=== PATIENT | male | born 1935 | race Caucasian/White ===

== ENCOUNTER 2016-07-01 15:13 | Observation (INO) | payer MEDICARE, OTHER ==
[2016-07-01 15:53] LABS: ABSOLUTE BASOPHILS # (AUTO) 0.1 10^3/uL (0.0-0.2); ABSOLUTE LYMPHOCYTES (AUTO) 1.1 10^3/uL (0.5-4.7); ABSOLUTE MONOCYTES (AUTO) 0.9 10^3/uL (0.1-1.4); ABSOLUTE NEUT (AUTO) 6.4 10^3/uL (1.7-8.2); BASOPHILS % (AUTO) 1.1 % (0-2); EOSINOPHILS % (AUTO) 0.5 % (0-6); HEMATOCRIT 35.9 % (37.9-51.0); HEMOGLOBIN 11.4 g/dL (13.5-17.0); HGB HCT DIFFERENCE -1.7; LYMPHOCYTES % (AUTO) 13.1 % (13-45); MEAN CORPUSCULAR HEMOGLOBIN 23.1 pg (27.0-33.4); MEAN CORPUSCULAR HGB CONC 31.8 g/dL (32.0-36.0); MEAN CORPUSCULAR VOLUME 73 fl (80-97); RED BLOOD COUNT 4.93 10^6/uL (4.35-5.55); SEGMENTED NEUTROPHILS % (AUTO) 75.3 % (42-78); WHITE BLOOD COUNT 8.5 10^3/uL (4.0-10.5)
[2016-07-01 15:55] LABS: PARTIAL THROMBOPLASTIN TIME 28.9 SEC (23.5-35.8); PROTHROMBIN TIME 13.2 SEC (11.4-15.4)
--- NOTE | 2016-07-01 15:57 | ER Document Report ---
ED General - General Stated Complaint: POSSIBLE STROKE Information source: Patient Notes: 80-year-old male who presents with his daughter with past medical history as recorded including a TIA, COPD, on baseline 3 L of nasal cannula at home. 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 According to the daughter the patient around 1 PM started to complain of feeling "lightheaded " with some bilateral lower extremity weakness. She states she couldn't " barely stand". She also states his oxygen level had returned up to 5 L and he was showing some hypoxia on the monitor. Patient was taken from triage immediately to the CAT scan machine and returned to room 2 where I met him. Patient currently denies any symptoms. Specifically he denies any headache, neck pain, chest pain, palpitations, abdominal pain, weakness or numbness. NIH score recorded immediately was 0. TRAVEL OUTSIDE OF THE [place] IN LAST 30 DAYS: No - HPI Onset: Other - See above Onset/Duration: Sudden Quality of pain: No pain Severity: Moderate Pain Level: Denies Associated symptoms: Other - See above Exacerbated by: Denies Relieved by: Denies Similar symptoms previously: Yes Recently seen / treated by doctor: No - Related Data Allergies/Adverse Reactions: No Known Allergies Allergy (Verified 07/05/14 15:03) Past Medical History - General Information source: Patient, Relative - Social History Smoking Status: Unknown if Ever Smoked Cigarette use (# per day): No Chew tobacco use (# tins/day): No Smoking Education Provided: No Frequency of alcohol use: None Family History: Reviewed & Not Pertinent - Past Medical History Cardiac Medical History: Reports: Hx Heart Attack - 2004, Hx Hypertension Denies: Hx Coronary Artery Disease Pulmonary Medical History: Reports: Hx Bronchitis, Hx COPD - inh, Hx Pneumonia - hx 2009 Denies: Hx Asthma Neurological Medical History: Denies: Hx Cerebrovascular Accident, Hx Seizures Musculoskeltal Medical History: 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 Psychiatric Medical History: Denies: Hx Depression Past Surgical History: Reports: Hx Pacemaker - Immunizations Hx Diphtheria, Pertussis, Tetanus Vaccination: Yes Hx Pneumococcal Vaccination: 01/11/09 Review of Systems - Review of Systems Constitutional: denies: Fever EENT: denies: Eye discharge, Nose discharge Respiratory: denies: Short of breath Gastrointestinal: denies: Vomiting Genitourinary: denies: Dysuria Musculoskeletal: denies: Leg swelling Skin: Other - no hives. denies: Rash Neurological/Psychological: Other - no slurred speech -: Yes All other systems reviewed and negative Physical Exam - Vital signs Vitals: Temp Pulse Resp BP 98.1 F 74 16 95/47 L 07/01/16 15:15 07/01/16 15:15 07/01/16 15:15 07/01/16 15:15 Notes: Reviewed vital signs and nursing note as charted by RN. CONSTITUTIONAL: Alert and oriented and responds appropriately to questions. Well -appearing; well-nourished HEAD: Normocephalic; atraumatic EYES: PERRL; full extraocular range of motion ENT: Normal nose; no rhinorrhea; moist mucous membranes; pharynx without lesions noted NECK: Supple without meningismus; no carotid bruits; non-tender; no cervical lymphadenopathy, no masses CARD: Regular rate and rhythm; no murmurs, no clicks, no rubs, no gallops; symmetric distal pulses RESP: Normal chest excursion without splinting or tachypnea; breath sounds clear and equal bilaterally; no wheezes, rales or rhonchi on examination. ABD/GI: Normal bowel sounds; non-distended; soft, non-tender, no rebound, no guarding; no palpable organomegaly or masses BACK: The back appears normal and is non-tender to palpation, there is no CVA tenderness EXT: Normal ROM in all joints; non-tender to palpation; no cyanosis, no effusions, no edema SKIN: Normal color for age and race; warm; dry; good turgor; capillary refill < 2 seconds; no acute lesions noted NEURO: CN II through XII are intact. 5 out of 5 bilateral upper and lower extremity strength. Sensation intact to light touch. Normal finger-nose bilaterally. PSYCH: The patient's mood and manner are appropriate. Grooming and personal hygiene are appropriate. Course - Re-evaluation Re-evalutation: 07/01/16 15:55 Given the history and physical examination, NIH score, CT scan of the head showing no acute abnormality, I DO NOT BELIEVE THE PATIENT IS A CANDIDATE FOR TPA. EKG shows a heart of 101, patient appears to have a wide complex atrial tachycardia consistent with possibly a left bundle branch block. Old EKG from 07/13/2014 shows a normal sinus rhythm. No bundle branch block is present at that time. 07/01/16 15:58 I reviewed the patient's chart it appears the patient does have a history of atrial fibrillation and is currently on Eliquis. Patient has denied any and all chest pain. Cardiac labs are pending. - Vital Signs Vital signs: Temp Pulse Resp BP Pulse Ox 98.1 F 100 20 119/56 L 97 07/01/16 15:15 07/01/16 15:52 07/01/16 16:01 07/01/16 16:01 07/01/16 16:01 - Laboratory Result Diagrams: 07/01/16 15:36 07/01/16 15:36 Laboratory results interpreted by me: 07/01/16 07/01/16 15:36 15:36 Hgb 11.4 L Hct 35.9 L MCV 73 L MCH 23.1 L MCHC 31.8 L RDW 18.0 H BUN 23 H Creatinine 1.66 H Est GFR ( Amer) 49 L Est GFR (Non-Af Amer) 40 L Glucose 139 H Critical Care Note - Critical Care Note Total time excluding time spent on procedures (mins): 40 Discharge - Discharge Clinical Impression: Weakness, Irregular heart rhythm Altered mental status Qualifiers: Altered mental status type: unspecified Qualified Code(s): R41.82 - Altered mental status, unspecified Acute renal failure Qualifiers: Acute renal failure type: unspecified Qualified Code(s): N17.9 - Acute kidney failure, unspecified Condition: Fair Disposition: ADMITTED INPATIENT Admitting Provider: Hospitalist Unit Admitted: [facility]
[2016-07-01 16:09] LABS: ALANINE AMINOTRANSFERASE 35 U/L (21-72); ALKALINE PHOSPHATASE 61 U/L (38-126); ANION GAP 14 (5-19); ASPARTATE AMINO TRANSFERASE 32 U/L (17-59); BILIRUBIN,DIRECT 0.3 mg/dL (0.0-0.4); BILIRUBIN,TOTAL 0.9 mg/dL (0.2-1.3); BLOOD UREA NITROGEN 23 mg/dL (7-20); CALCIUM 9.5 mg/dL (8.4-10.2); CARBON DIOXIDE 29 mmol/L (22-30); CHLORIDE 99 mmol/L (98-107); CREATINE KINASE 168 U/L (55-170); CREATININE RESULT 1.66 mg/dL (0.52-1.25); GLUCOSE 139 mg/dL (75-110); POTASSIUM 4.1 mmol/L (3.6-5.0); SODIUM 142.2 mmol/L (137-145); TOTAL PROTEIN 6.5 g/dL (6.3-8.2)
[2016-07-01 16:21] LABS: CREATINE KINASE MB 3.16 ng/mL (<4.55)
[2016-07-01 16:23] LABS: TROPONIN I 0.05 ng/mL
[2016-07-01] MEDS ORDERED: NORMAL SALINE 1000 ML 500 ML IV ONE (17:05)
[2016-07-01] MEDS ORDERED: ACETAMINOPHEN 325 MG TABLET PO PRN (18:00)
[2016-07-01] MEDS ORDERED: GLUCAGON,HUMAN RECOMB 1 MG INJ IM PRN (18:00)
[2016-07-01] MEDS ORDERED: DEXTROSE 50%-WATER 25 GM/50 ML DISP.SYRIN IV PRN ×2 (18:00)
[2016-07-01] MEDS ORDERED: DEXTROSE 40% GEL 15 GM TUBE PO PRN ×2 (18:00)
[2016-07-01] MEDS ORDERED: ONDANSETRON HCL INJ/PF 4 MG/2 ML SDV IV PRN (18:07)
[2016-07-01] MEDS ORDERED: MAGNESIUM HYDROXIDE SUSP 30 ML UDCUP PO PRN (18:07)
[2016-07-01] MEDS: NORMAL SALINE 1000 ML 1,000 ML IV PRN (18:29)
--- NOTE | 2016-07-01 18:29 | EKG REPORT ---
SEVERITY:- ABNORMAL ECG - ATRIAL FIBRILLATION IVCD, CONSIDER ATYPICAL LBBB : Confirmed by: Noe Quintanilla MD 01-Jul-2016 18:28:58
--- NOTE | 2016-07-01 18:31 | PDOC H&P ---
History of Present Illness Admission Date/PCP: 07/01/16 17:34 TEZ YEH MD Patient complains of: Weakness History of Present Illness: MARIO YEH is a 80 year old male presents to the emergency department from home at the insistence of his daughter who states he became suddenly weak today and unable to bear his own weight. Because of his history of TIA and atrial fibrillation and she thought that further evaluation. He really doesn't know why he is here because he thinks she overreacted and is only willing to stay in the hospital to "keep the peace". He states the reason is weak is because all she will let him do is sit in the chair all day, apparently his daughter is his care provider at home. He denies headache, vision changes, tinnitus, chest pain, palpitations, fever, chills, cough with phlegm, nausea, vomiting, diarrhea, unilateral weakness, numbness or tingling, dysarthria or difficulty swallowing, difficulty finding his words. Evaluation in the emergency department shows a new left bundle branch block when compared to EKG from 2015 and the remainder of his workup is unremarkable. We were asked to admit for further evaluation of presumed transient ischemic attack. Past Medical History Cardiac Medical History: Reports: Atrial Fibrillation, Myocardial Infarction - 2005, Hypertension Denies: Coronary Artery Disease Pulmonary Medical History: Reports: Bronchitis, Chronic Obstructive Pulmonary Disease (COPD) - inh, Pneumonia - hx 2008 Denies: Asthma Neurological Medical History: Denies: Seizures Endocrine Medical History: Reports: Diabetes Mellitus Type 2 Musculoskeltal Medical History: Reports: Arthritis - mild Psychiatric Medical History: Denies: Depression Hematology: Denies: Anemia Past Surgical History Past Surgical History: Reports: Coronary Artery Bypass Graft, Pacemaker Social History Smoking Status: Unknown if Ever Smoked Frequency of Alcohol Use: Rare Hx Recreational Drug Use: No Hx Prescription Drug Abuse: No - Advance Directive Resuscitation Status: Full Code Family History Family History: Reviewed & Not Pertinent Parental Family History Reviewed: Yes Children Family History Reviewed: Yes Sibling(s) Family History Reviewed.: Yes Medication/Allergy Home Medications: Albuterol Sulfate [Albuterol Sulfate Hfa] 1 - 2 puff IH Q4 PRN 07/05/14 Apixaban [Eliquis 5 mg Tablet] 5 mg PO BID 07/05/14 Bromfenac Sodium [Prolensa] 3 ml OP DAILY 07/05/14 Chlorthalidone [Chlorthalidone 25 mg Tablet] 0.5 tab PO DAILY 07/05/14 Insulin Lispro [Humalog Insulin (Lispro) 100 unit/mL] 0 unit SUBCUT .SLD SCALE PRN 07/05/14 Lisinopril 10 mg PO BID 07/05/14 Metoprolol Tartrate [Lopressor] 50 mg PO BID 07/05/14 Multivitamin [Tab-A-Essie (Multiple Vitamin) Tablet] 1 tab PO DAILY 07/05/14 Sanborn-3 Fatty Acids [Fish Oil] 500 mg PO DAILY 07/05/14 Rosuvastatin Calcium [Crestor 20 mg Tablet] 40 mg PO QHS 07/05/14 Insulin Detemir [Levemir Flextouch] 40 unit SQ QAM #0 ml 07/08/14 Pentoxifylline [Pentoxil] 400 mg PO TID 07/11/14 Azithromycin [Zithromax] 250 mg PO DAILY #7 tablet 07/17/14 Allergies/Adverse Reactions: No Known Allergies Allergy (Verified 07/05/14 15:03) Review of Systems Constitutional: ABSENT: chills, fever(s), headache(s), weight gain, weight loss Eyes: ABSENT: visual disturbances Ears: ABSENT: hearing changes Cardiovascular: ABSENT: chest pain, dyspnea on exertion, edema, orthropnea, palpitations Respiratory: ABSENT: cough, hemoptysis Gastrointestinal: ABSENT: abdominal pain, constipation, diarrhea, hematemesis, hematochezia, nausea, vomiting Genitourinary: ABSENT: dysuria, hematuria Musculoskeletal: ABSENT: joint swelling Integumentary: ABSENT: rash, wounds Neurological: PRESENT: weakness. ABSENT: abnormal gait, abnormal speech, confusion, dizziness, focal weakness, numbness, paresthesias, syncope, tingling Psychiatric: ABSENT: anxiety, depression Endocrine: ABSENT: cold intolerance, heat intolerance, polydipsia, polyuria Hematologic/Lymphatic: ABSENT: easy bleeding, easy bruising Physical Exam Vital Signs: Temp Pulse Resp BP Pulse Ox 98.1 F 79 16 152/70 H 97 07/01/16 15:15 07/01/16 18:00 07/01/16 18:00 07/01/16 18:00 07/01/16 18:00 Intake & Output 06/30/16 07/01/16 07/02/16 06:59 06:59 06:59 Weight 79.379 kg PHYSICAL EXAM GENERAL: NAD; well developed, well nourished; no obese; alert and oriented to person, place, time, situation HEENT: normocephalic, atraumatic; EOMI, PERRLA, no conjunctival injection, no scleral icterus; oral mucosa moist; neck supple, no LAD, normal ROM RESPIRATORY: no accessory muscle use, no increased WOB, good air entry bilaterally; no wheezes, rales, rhonchi; no inspiratory crackles CARDIO: no JVD; irregularly irregular; no systolic murmur; no tachycardia VASCULAR: Right high-pitched carotid bruit; no abdominal bruit; no pallor; 2+ radial, DP pulse; normal capillary refill GI: soft; nondistended; normal bowel sounds; no hepato spleno megaly; no rebound, rigidity, guarding; nontender NEURO: normal patella reflexes; normal sensation; normal motor function; no dysarthria; no nystagmus; tongue protrudes midline; normal finger to nose; able to cross midline with finger to ear MSK: 5/5 strength; normal ROM hips; ambulatory without assistance; no tenderness EXTREMITIES: no calf tender; no palpable cords in calf; no clubbing, cyanosis , pedal edema PSYCH: normal affect, normal mood SKIN: warm; moist; no petechiae; no telengectasias; no jaundice; no rash but very pale Results Laboratory Results: Labs reviewed, CBC shows H&H of 11 and 36, platelets of 213 and WBCs of 8.5; chemistries show BUN and creatinine of 23 and 1.7 with a glucose of 139 and are otherwise unremarkable; first set of cardiac enzymes unremarkable. EKG Comments: Atrial fibrillation with a rate of 101, corrected QT interval of 509 but he has an incomplete left bundle branch block Impressions: Chest X-Ray 07/01/16 15:13 IMPRESSION: Borderline cardiomegaly with central pulmonary vascular congestion. There is hazy densities noted in the right mid lung and lower lung zones could represent areas of edema, infiltrate, or atelectasis. There is some retrocardiac opacity could represent atelectasis, edema, infiltrate, or aspiration. Correlate clinically. Head CT 07/01/16 15:13 IMPRESSION: CHRONIC CHANGES OF ATROPHY AND MICROVASCULAR ISCHEMIA. No acute intracranial abnormality identified. Status: Image reviewed by tn - Chest x-ray appears to show a right sided midlung rounded nodular density when compared to prior CT scan from 2 years ago there is a small 1.2 cm scar noted in the same area, this appears to be much larger by chest x-ray than previous Assessment & Plan - Diagnosis (1) TIA (transient ischemic attack) Qualifiers: Transient cerebral ischemia type: unspecified Qualified Code(s): G45.9 - Transient cerebral ischemic attack, unspecified Is this a current diagnosis for this admission?: YesPlan: Atypical presentation with bilateral lower extremity weakness and postural dizziness. Admit the patient to telemetry for overnight monitoring. He has a known carotid bruit on the right but states he's undergone carotid endarterectomy in the last year and was just seen by Dr. Sin his vascular surgeon in [facility] 3 weeks ago and his carotid arteries were cleaned by ultrasound at that time. He has a pacemaker in place and cannot undergo MRI. His pacemaker was just interrogated by Dr. Yeh his primary image processing engineer in [facility] within the last 30 days and was told he had no irregularities. The only abnormality identified thus far is an incomplete left bundle branch block that new by EKG for us since 2015 but true timing is unclear; will need old EKGs from his image processing engineer. I understand Dr. Porter as been consulting by the ER physician and yet to see the patient. Await cardiology's input. (2) Chronic atrial fibrillation Is this a current diagnosis for this admission?: YesPlan: He is on anticoagulation and reasonably rate controlled at present. Continue home regimen. (3) Acute renal failure Qualifiers: Acute renal failure type: unspecified Qualified Code(s): N17.9 - Acute kidney failure, unspecified Is this a current diagnosis for this admission?: YesPlan: Once again we have no recent lab work on him, in 2015 his serum creatinine was normal but it's unclear whether that could've decompensated over the course of the last 2 years. Given his presentation will presume its prerenal and gently fluid resuscitate through the night. (4) Weakness Is this a current diagnosis for this admission?: YesPlan: Likely multifactorial and possibly related to the above. Check orthostatic vitals now and in the morning. Have physical therapy evaluate to establish functional status. (5) COPD, severe Is this a current diagnosis for this admission?: YesPlan: Wears continuous O2 at home, 2 L during the day and 3 L at night. He denies obstructive sleep apnea or use of CPAP at night. I do not appreciate bronchospasm on today's exam. (6) Diabetes mellitus type II, controlled Qualifiers: Diabetes mellitus complication status: with circulatory complication Diabetes mellitus complication detail: with other circulatory complications Diabetes mellitus custodial insulin use: with mobile service rv technician use Qualified Code(s): E11.59 - Type 2 diabetes mellitus with other circulatory complications ; Z79.4 - longterm (current) use of insulin Is this a current diagnosis for this admission?: YesPlan: We need to verify his home regimen and continue basal bolus. Check hemoglobin A1c in the morning. (7) Hyperlipidemia Qualifiers: Hyperlipidemia type: unspecified Qualified Code(s): E78.5 - Hyperlipidemia, unspecified Is this a current diagnosis for this admission?: YesPlan: Check lipid panel in the morning. Continue his Crestor. (8) Hypertension Qualifiers: Hypertension type: renovascular hypertension Qualified Code(s): I15.0 - Renovascular hypertension Is this a current diagnosis for this admission?: YesPlan: Monitor his blood pressure through the night and continue his home regimen titrating to effect. (9) Pulmonary nodule, right Is this a current diagnosis for this admission?: YesPlan: Allowing for differences in technique it is possible the nodule is larger than seen previously, the patient receives most of his care in [place] including recent imaging. Defer to his primary care provider for repeat CT scan of the chest if that's not been performed in the last 6 months given the size seen on chest x-ray approximately 2 cm (10) Peripheral arterial disease Is this a current diagnosis for this admission?: YesPlan: History of carotid endarterectomy in the last year, followed by vascular surgery in [facility]. - Time Time Spent: 50 to 70 Minutes Medications reviewed and adjusted accordingly: Yes Anticipated discharge: Home Within: within 24 hours - Plan Summary Plan Summary: Check neurologic score through the night and assuming no new events can likely be discharged back home tomorrow. We'll attempt to get old records from his vascular surgeon and neurologist before reordering test he states have been completed within the last 30-60 days.
[2016-07-01 18:32] LABS: PHOSPHORUS 3.3 mg/dL (2.5-4.5)
--- NOTE | 2016-07-01 20:12 | PDOC CONSULTATION ---
Consultation Consult Date: 07/01/16 Attending physician:: OMER HOFFMAN Consult reason:: Abnormal EKG, wide-complex tachycardia History of Present Illness Admission Date/PCP: 07/01/16 17:34 TEZ CARLSON MD Patient complains of: generalized weakness History of Present Illness: MARIO CARLSON is a 80 year old male presents to the emergency department from home at the insistence of his daughter who states he became suddenly weak today and unable to bear his own weight. Because of his history of TIA and atrial fibrillation and she thought that further evaluation is needed. He really doesn't know why he is here because he thinks she overreacted and is only willing to stay in the hospital to "keep the peace". He states the reason is weak is because all she will let him do is sit in the chair all day, apparently his daughter is his care provider at home. He denies headache, vision changes, tinnitus, chest pain, palpitations, fever, chills, cough with phlegm, nausea, vomiting, diarrhea, unilateral weakness, numbness or tingling, dysarthria or difficulty swallowing, difficulty finding his words. Evaluation in the emergency department shows a new left bundle branch block when compared to EKG from 2015 and the remainder of his workup is unremarkable. We were asked to admit for further evaluation of presumed transient ischemic attack. This history was reviewed, confirmed and supplemented. On repeated questioning patient denied any chest pain. Patient claims that his generalized weakness has improved. Past Medical History Cardiac Medical History: Reports: Atrial Fibrillation, Myocardial Infarction - 2005, Hypertension Denies: Coronary Artery Disease Pulmonary Medical History: Reports: Bronchitis, Chronic Obstructive Pulmonary Disease (COPD) - inh, Pneumonia - hx 2008 Denies: Asthma Neurological Medical History: Denies: Seizures Endocrine Medical History: Reports: Diabetes Mellitus Type 2 Musculoskeltal Medical History: Reports: Arthritis - mild Psychiatric Medical History: Denies: Depression Hematology: Denies: Anemia Past Surgical History Past Surgical History: Reports: Coronary Artery Bypass Graft, Pacemaker Social History Information Source: Patient Smoking Status: Unknown if Ever Smoked Frequency of Alcohol Use: Rare Hx Recreational Drug Use: No Hx Prescription Drug Abuse: No - Advance Directive Resuscitation Status: Full Code Surrogate healthcare decision maker:: Patient's daughter Family History Family History: Reviewed & Not Pertinent Parental Family History Reviewed: Yes Children Family History Reviewed: Yes Sibling(s) Family History Reviewed.: Yes - Negative for premature coronary artery disease or sudden cardiac in the family amongst first degree relatives. Medication/Allergy Home Medications: Albuterol Sulfate [Proair HFA Inhalation Aerosol 8.5 gm MDI] 1 puff IH Q4HP PRN 07/01/16 Aspirin [Adult Low Dose Aspirin EC] 81 mg PO BID 07/01/16 Budesonide/Formoterol Fumarate [Symbicort HFA 160-4.5 mcg Inhaler 6 gm] 2 puff IH BID 07/01/16 Insulin Detemir [Levemir Flextouch] 0 units SQ .PERSLIDINGSCALE 07/01/16 Insulin Lispro [Humalog] 0 units SQ .PERSLIDINGSCALE 07/01/16 Metoprolol Tartrate [Lopressor] 50 mg PO BID 07/01/16 Multivitamin [Multivitamins] 1 tab PO DAILY 07/01/16 Rosuvastatin Calcium [Crestor] 40 mg PO QHS 07/01/16 Tiotropium [place] [Spiriva Respimat] 2 puff IH DAILY 07/01/16 Allergies/Adverse Reactions: No Known Allergies Allergy (Verified 07/05/14 15:03) Review of Systems Review of Systems: Please see history of present illness and past medical history as wall. Constitutional: No fever or chills reported. Patient has noted some general fatigue and tiredness. Head : No recent chronic headaches, recent head injury. Intermittent dizziness noted. Eyes: No recent eye pain, diplopia, redness, discharge, acute visual changes. Ears: No recent chronic ear pain, acute hearing loss, ear discharge. Oral cavity: No recent ulcerations, bleeding, oral cavity discomfort. Neck: No recent acute neck pain reported. Hematologic: No recent easy bruising or bleeding or hematologic malignancy reported. Lymphatic: No recent lymphatic malignancy, chronic lymphadenopathy reported yet Cardiovascular system review: See history of present illness. Respiratory system review: No recent chronic cough, hemoptysis, blood clots in the lungs reported. Mild Shortness of breath on exertion Gastrointestinal system review: Negative for any recent acute or chronic abdominal pain, hematemesis, melena, recent change in bowel habits. Genitourinary system review: No recent acute or chronic hematuria, flank pain, UTI etc. reported. Skin system review: Negative for any recent abnormal bruising, no rash, no pruritus reported. Neurologic: No prior history of strokes, mini strokes, seizure disorder. Psychologic: No history of major psychosis or major depression reported. Musculoskeletal: Minor aches and pains reported. No acute joint swelling reported. Endocrine: No recent polyuria, polydipsia, recent heat or cold intolerance. Physical Exam Vital Signs: Temp Pulse Resp BP Pulse Ox 98.1 F 79 17 137/52 H 88 L 07/01/16 15:15 07/01/16 18:00 07/01/16 19:01 07/01/16 19:01 07/01/16 19:01 Intake & Output 06/30/16 07/01/16 07/02/16 06:59 06:59 06:59 Weight 79.379 kg Exam: GENERAL: well-nourished and in no acute distress. Alert and oriented x3 HEAD: Atraumatic, normocephalic. EYES: Pupils equal round and reactive to light, extraocular movements intact, sclera anicteric, conjunctiva are normal. ENT: TMs normal, nares patent, oropharynx clear without exudates. Moist mucous membranes. No oral ulcerations or bleeding gums noted NECK: supple without lymphadenopathy. Trachea is central. No cervical or axillary lymphadenopathy noted. Carotids are 2+, JVD WNL LUNGS: Respiration seems nonlabored, no significant accessory muscle action noted. Breath sounds clear to auscultation bilaterally and equal noted. No wheezes rales or rhonchi noted. No significant dullness noted on percussion. CHEST: Palpation of the chest wall shows no significant chest wall tenderness. No other significant abnormalities noted. Pacemaker defibrillator noted left side of chest. 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 ABDOMEN: Soft, no significant tenderness appreciated, normoactive bowel sounds. No guarding, no rebound. No rigidity noted . No masses appreciated. EXTREMITIES: Pedal pulses are 1-2+, no calf tenderness noted. No clubbing or cyanosis.trace to 1+ pedal edema noted NEUROLOGICAL: Focused neurological exam showed no significant neurologic deficit. Normal speech, no focal weakness appreciated. PSYCH: Normal mood, normal affect. Judgment and insight within normal limits. SKIN: No significant ecchymosis, rash, ulcerations or signs of pruritus noted. MUSCULOSKELETAL EXAM: No significant joint swelling noted. Results EKG Comments: Atrial fibrillation with left bundle branch block pattern. New changes on EKG from approximately 2 years ago. Impressions: Chest X-Ray 07/01/16 15:13 IMPRESSION: Borderline cardiomegaly with central pulmonary vascular congestion. There is hazy densities noted in the right mid lung and lower lung zones could represent areas of edema, infiltrate, or atelectasis. There is some retrocardiac opacity could represent atelectasis, edema, infiltrate, or aspiration. Correlate clinically. Head CT 07/01/16 15:13 IMPRESSION: CHRONIC CHANGES OF ATROPHY AND MICROVASCULAR ISCHEMIA. No acute intracranial abnormality identified. Assessment & Plan - Diagnosis (1) Left bundle branch block (LBBB) Is this a current diagnosis for this admission?: YesPlan: This is new since previous EKG available for review from 2014. At this point agree with VT rule out protocol. Since patient did not have chest pain, no intervention is being planned. Have ordered her echocardiogram. (2) Chronic atrial fibrillation Is this a current diagnosis for this admission?: YesPlan: Patient gives history of chronic atrial fibrillation. Patient has been on chronic anticoagulation. At this times rate slightly on the high side but reasonably well controlled. Continue with chronic anticoagulation. (3) TIA (transient ischemic attack) Qualifiers: Transient cerebral ischemia type: unspecified Qualified Code(s): G45.9 - Transient cerebral ischemic attack, unspecified Is this a current diagnosis for this admission?: YesPlan: Currently resolved. Recommend statin therapy. May consider carotid duplex ultrasound study (4) Weakness Is this a current diagnosis for this admission?: YesPlan: Currently stable. May consider IV fluid therapy. (5) Presence of combination internal cardiac defibrillator (ICD) and pacemaker Is this a current diagnosis for this admission?: YesPlan: Patient denies any recent discharges. (6) Coronary artery disease Qualifiers: Coronary Disease-Associated Artery/Lesion type: unspecified vessel or lesion type Associated angina: angina presence unspecified Is this a current diagnosis for this admission?: YesPlan: Patient gives history of CAD and is status post CABG. Generalized weakness can be an ischemia equivalent symptom at this age group. Agree with cardiac enzymes. If abnormal will consider further evaluation with a stress test. - Notes Notes: CODE STATUS was discussed, patient remains full code. Surrogate decision-maker unchanged. Multiple medical problems were addressed. - Time Time Spent: 30 to 50 Minutes - More than 50% of the time spent coordinating care , discussing management plans with involved caregivers. Management plans discussed with involved personnels. Medical decision making was of moderate complexity. Surrogate decision-maker patient's daughter. Medications reviewed and adjusted accordingly: Yes
[2016-07-01] MEDS: FAMOTIDINE 20 MG TABLET PO SCH (21:27)
[2016-07-01] MEDS: INSULIN LISPRO 100 UNIT/ML 3 ML VIAL SUBCUT PRN (23:39)
[2016-07-02] MEDS: NORMAL SALINE 1000 ML 1,000 ML IV PRN (03:20)
[2016-07-02 03:46] LABS: HEMATOCRIT 33.8 % (37.9-51.0); HEMOGLOBIN 10.9 g/dL (13.5-17.0); HGB HCT DIFFERENCE -1.1; MEAN CORPUSCULAR HEMOGLOBIN 23.4 pg (27.0-33.4); MEAN CORPUSCULAR HGB CONC 32.2 g/dL (32.0-36.0); MEAN CORPUSCULAR VOLUME 73 fl (80-97); RED BLOOD COUNT 4.65 10^6/uL (4.35-5.55); RED CELL DISTRIBUTION WIDTH 18.2 % (11.5-14.0); WHITE BLOOD COUNT 5.9 10^3/uL (4.0-10.5)
[2016-07-02 04:03] LABS: ANION GAP 14 (5-19); BLOOD UREA NITROGEN 23 mg/dL (7-20); CALCIUM 9.3 mg/dL (8.4-10.2); CARBON DIOXIDE 26 mmol/L (22-30); CHLORIDE 103 mmol/L (98-107); CHOLESTEROL 126.23 mg/dL (0-200); CREATININE RESULT 1.05 mg/dL (0.52-1.25); Direct HDL 41 mg/dL (>40); GLUCOSE 160 mg/dL (75-110); POTASSIUM 3.9 mmol/L (3.6-5.0); SODIUM 142.8 mmol/L (137-145); TRIGLYCERIDES 69 mg/dL (<150)
[2016-07-02 04:14] LABS: DIRECT LDL 73 mg/dL (<100)
[2016-07-02 06:27] LABS: APPEARANCE,URINE CLEAR; BILIRUBIN,URINE NEGATIVE (NEGATIVE); GLUCOSE, URINE 50 mg/dL (NEGATIVE); KETONES,URINE NEGATIVE (NEGATIVE); LEUKOCYTE ESTERASE,URINE NEGATIVE (NEGATIVE); NITRITE,URINE NEGATIVE (NEGATIVE); PROTEIN,URINE NEGATIVE (NEGATIVE); URINE SPECIFIC GRAVITY 1.014; UROBILINOGEN,URINE NEGATIVE mg/dL (<2.0)
[2016-07-02] MEDS: INSULIN LISPRO 100 UNIT/ML 3 ML VIAL SUBCUT PRN ×2 (08:43→12:29)
[2016-07-02] MEDS: FAMOTIDINE 20 MG TABLET PO SCH (09:54)
--- NOTE | 2016-07-02 12:07 | PDOC PROGRESS REPORT ---
Subjective Progress Note for:: 07/02/16 Subjective:: Patient seems to be doing better with gradual improvement. Pt is denying any chest arm or neck discomfort. Patient denying any PND, orthopnea. Patient denied any sustained palpitations, dizziness, syncope, near syncope. Patient denying any fever chills. Patient denying any other significant discomfort. Patient is maintaining sinus rhythm. Patient seems to have converted to sinus rhythm from atrial fibrillation. He was noted to be in sinus rhythm on rounds this morning. Twelve-lead EKG obtained subsequently did confirm this. Patient however remains in left bundle branch block pattern. Review of systems: Rest review of systems negative. Medications: Medications have been reviewed. Physical Exam Vital Signs: Temp Pulse Resp BP Pulse Ox 98.3 F 97 20 180/67 H 96 07/02/16 08:00 07/02/16 08:00 07/02/16 08:00 07/02/16 08:00 07/02/16 08:00 Intake & Output 07/01/16 07/02/16 07/03/16 06:59 06:59 06:59 Intake Total 213 Output Total 300 Balance -87 Weight 77 kg Exam: GENERAL: well-nourished and in no acute distress. Alert and oriented x3 HEAD: Atraumatic, normocephalic. EYES: Pupils equal round and reactive to light, extraocular movements intact, sclera anicteric, conjunctiva are normal. ENT: TMs normal, nares patent, oropharynx clear without exudates. Moist mucous membranes. No oral ulcerations or bleeding gums noted NECK: supple without lymphadenopathy. Trachea is central. No cervical or axillary lymphadenopathy noted. Carotids are 2+, JVD WNL LUNGS: Respiration seems nonlabored, no significant accessory muscle action noted. Breath sounds clear to auscultation bilaterally and equal noted. No wheezes rales or rhonchi noted. No significant dullness noted on percussion. CHEST: Palpation of the chest wall shows no significant chest wall tenderness. No other significant abnormalities noted. 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 ABDOMEN: Soft, no significant tenderness appreciated, normoactive bowel sounds. No guarding, no rebound. No rigidity noted . No masses appreciated. EXTREMITIES: Pedal pulses are 1-2+, no calf tenderness noted. No clubbing or cyanosis.trace to 1+ pedal edema noted NEUROLOGICAL: Focused neurological exam showed no significant neurologic deficit. Normal speech, no focal weakness appreciated. PSYCH: Normal mood, normal affect. Judgment and insight within normal limits. SKIN: No significant ecchymosis, rash, ulcerations or signs of pruritus noted. MUSCULOSKELETAL EXAM: No significant joint swelling noted. Results Laboratory Results: 07/02/16 03:34 07/02/16 03:34 07/02/16 07/02/16 07/02/16 03:34 03:34 06:13 WBC 5.9 RBC 4.65 Hgb 10.9 L Hct 33.8 L MCV 73 L MCH 23.4 L MCHC 32.2 RDW 18.2 H Plt Count 168 Sodium 142.8 Potassium 3.9 Chloride 103 Carbon Dioxide 26 Anion Gap 14 BUN 23 H Creatinine 1.05 Est GFR ( Amer) > 60 Est GFR (Non-Af Amer) > 60 Glucose 160 H Calcium 9.3 Triglycerides 69 Cholesterol 126.23 LDL Cholesterol Direct 73 VLDL Cholesterol 14.0 HDL Cholesterol 41 Urine Color YELLOW Urine Appearance CLEAR Urine pH 5.0 Ur Specific [place] 1.014 Urine Protein NEGATIVE Urine Glucose (UA) 50 H Urine Ketones NEGATIVE Urine Blood NEGATIVE Urine Nitrite NEGATIVE Ur Leukocyte Esterase NEGATIVE Urine WBC (Auto) 1 Urine RBC (Auto) 0 07/01/16 07/02/16 21:40 03:34 Troponin I 0.045 0.062 Impressions: Chest X-Ray 07/01/16 15:13 IMPRESSION: Borderline cardiomegaly with central pulmonary vascular congestion. There is hazy densities noted in the right mid lung and lower lung zones could represent areas of edema, infiltrate, or atelectasis. There is some retrocardiac opacity could represent atelectasis, edema, infiltrate, or aspiration. Correlate clinically. Head CT 07/01/16 15:13 IMPRESSION: CHRONIC CHANGES OF ATROPHY AND MICROVASCULAR ISCHEMIA. No acute intracranial abnormality identified. Assessment & Plan - Diagnosis (1) Left bundle branch block (LBBB) Is this a current diagnosis for this admission?: Yes (2) TIA (transient ischemic attack) Qualifiers: Transient cerebral ischemia type: unspecified Qualified Code(s): G45.9 - Transient cerebral ischemic attack, unspecified Is this a current diagnosis for this admission?: Yes (3) Weakness Is this a current diagnosis for this admission?: Yes (4) Presence of combination internal cardiac defibrillator (ICD) and pacemaker Is this a current diagnosis for this admission?: Yes (5) Coronary artery disease Qualifiers: Coronary Disease-Associated Artery/Lesion type: unspecified vessel or lesion type Associated angina: angina presence unspecified Is this a current diagnosis for this admission?: Yes (6) Hypertension Qualifiers: Hypertension type: essential hypertension Qualified Code(s): I10 - Essential (primary) hypertension Is this a current diagnosis for this admission?: Yes (7) Atrial fibrillation Qualifiers: Atrial fibrillation type: paroxysmal Qualified Code(s): I48.0 - Paroxysmal atrial fibrillation Is this a current diagnosis for this admission?: Yes (8) Severe hypertension Is this a current diagnosis for this admission?: Yes - Notes Notes: Left bundle branch block pattern: New since prior EKG from 2014. Do not feel anything acute is going on. Patient did have a stress test about a month ago. Cardiac enzymes are negative. Feel that patient stable enough to follow with his primary artificial teeth inspector for further assessment as needed. Patient not experiencing any chest pain and cardiac enzymes are negative therefore doubt ischemia induced left bundle. 2-D echo results reviewed. Atrial fibrillation: Now felt to be paroxysmal. Patient may benefit from maintenance of sinus rhythm. In this regard will leave decision for primary care artificial teeth inspector to start him on either amiodarone or sotalol. Patient was felt not to be that much symptomatic when in atrial fibrillation. Transient ischemic attack: Resolved. Could have been related to atrial fibrillation. Presence of cardiac defibrillator pacemaker: This was interrogated recently as well and was noted to be working fine. CAD: Currently stable without any symptoms to indicate angina or angina equivalent symptom. Recommend follow-up with artificial teeth inspector for further optimization of therapy. Hypertension, severe: Blood pressure in the severe hypertension range Patient's blood pressure noted to be significantly elevated. Have added Norvasc 5 mg by mouth daily, however losartan or CLARISA inhibitor could have been better choice but there is some concern whether patient has renovascular hypertension. Antihypertensive therapy can be further optimized as an outpatient. - Time Time with patient: Greater than 35 minutes - CODE STATUS was discussed, patient remains full code. Surrogate decision-maker unchanged. Multiple medical problems were addressed.More than 50% of the time spent coordinating care, discussing management plans with involved caregivers. Management plans discussed with involved personnels. Medical decision making was of moderate complexity. Medications reviewed and adjusted accordingly: Yes
[2016-07-02] MEDS ORDERED: LOSARTAN POTASSIUM 25 MG TABLET PO SCH (12:15)
[2016-07-02] MEDS ORDERED: METOPROLOL TARTRATE 50 MG TABLET PO ONE (12:30)
[2016-07-02] MEDS ORDERED: MULTIVITAMIN TABLET PO ONE (13:00)
[2016-07-02] MEDS ORDERED: AMLODIPINE BESYLATE 5 MG TABLET PO ONE (13:30)
--- NOTE | 2016-07-02 13:42 | XCELERA REPORT ---
[address] [address] Transthoracic Echocardiogram Report Name: MARIO CARLSON Age: 80 yrs Gender: Male : 1935 Patient Status: Inpatient Patient Location: [id number] Study Date: 07/02/2016 07:55 AM Height: 70 in Weight: 175 lb BSA: 2.0 m2 Procedure: A complete two-dimensional transthoracic echocardiogram was performed (2D, M-mode, spectral and color flow Doppler). The study was technically adequate with some images being suboptimal in quality. Reason For Study: A. fib, dyspnea Ordering Physician: JP ALVAREZ Performed By: Poncho Welsh Interpretation Summary Left ventricular systolic function is low normal. LV diastolic function could not be adequately assessed. There is mild concentric left ventricular hypertrophy. The left ventricle is grossly normal size. Wall motion cannot be accurately commented on, but no definite regional wall motion abnormalities noted. The right ventricular systolic function is normal. The left atrium is moderately dilated. The right atrium is mildly dilated. There is no mitral valve stenosis. There is a mild amount of mitral regurgitation There is a trace amount of aortic regurgitation There is no aortic valve stenosis There is a trace to mild amount of tricuspid regurgitation There is moderate pulmonary hypertension by echo Right ventricular systolic pressure is estimated to be elevated at 50- 60mmHg. The pulmonic valve is not well visualized. The aortic root is not well visualized. The inferior vena cava appeared normal and decreased > 50% with respiration (RAP 5-10 mmHg) There is no pericardial effusion. MMode/2D Measurements \T\ Calculations RVDd: 1.8 cm LVIDd: 5.5 cm FS: 22.6 % Ao root diam: 3.3 cm IVSd: 1.3 cm LVIDs: 4.3 cm EDV(Teich): 149.2 ml LVPWd: 1.4 cm ESV(Teich): 82.0 ml Ao root area: 8.6 cm2 EF(Teich): 45.0 % LA dimension: 4.9 cm Doppler Measurements \T\ Calculations MV E max xochitl: MV P1/2t max xochitl: Ao V2 max: LV V1 max P.9 cm/sec 133.3 cm/sec 140.6 cm/sec 3.8 mmHg MV P1/2t: 41.6 msec Ao max PG: LV V1 max: 7.9 mmHg 96.9 cm/sec MVA(P1/2t): 5.3 cm2 MV dec slope: 937.5 cm/sec2 PA V2 max: TR max xochitl: RAP systole: 71.1 cm/sec 333.0 cm/sec 10.0 mmHg PA max P.0 mmHgTR max P.4 mmHg RVSP(TR): 54.4 mmHg Left Ventricle The left ventricle is grossly normal size. There is mild concentric left ventricular hypertrophy. Left ventricular systolic function is low normal. LV diastolic function could not be adequately assessed. Wall motion cannot be accurately commented on, but no definite regional wall motion abnormalities noted. Right Ventricle The right ventricle is grossly normal size. The right ventricle appears to be hypertrophied. The right ventricular systolic function is normal. Atria The right atrium is mildly dilated. The left atrium is moderately dilated. Interarterial septum not well visualized and not well dopplered. Cannot comment on ASD/PFO presence. Mitral Valve There is mild mitral leaflet calcification. There is no mitral valve stenosis. There is a mild amount of mitral regurgitation. Aortic Valve The aortic valve is mildly calcified. There is no aortic valve stenosis. There is a trace amount of aortic regurgitation. Tricuspid Valve The tricuspid valve is not well visualized secondary to technical limitations. There is no tricuspid stenosis. There is a trace to mild amount of tricuspid regurgitation. There is moderate pulmonary hypertension by echo. Right ventricular systolic pressure is estimated to be elevated at 50-60mmHg. Pulmonic Valve The pulmonic valve is not well visualized. Great Vessels The aortic root is not well visualized. The inferior vena cava appeared normal and decreased > 50% with respiration (RAP 5-10 mmHg). Effusions There is no pericardial effusion. : JP ALVAREZ > Jp Alvarez
--- NOTE | 2016-07-02 13:54 | EKG REPORT ---
SEVERITY:- ABNORMAL ECG - SINUS TACHYCARDIA VENTRICULAR PREMATURE COMPLEX PROBABLE LEFT ATRIAL ABNORMALITY IVCD, CONSIDER ATYPICAL LBBB : Confirmed by: Noe Quintanilla MD 02-Jul-2016 13:53:12
[2016-07-02 16:08] VITALS: BP 176/64
--- NOTE | 2016-07-02 17:52 | PDOC DISCHARGE SUMMARY ---
General - Admit/Disc Date/PCP Admission Date/Primary Care Provider: 07/01/16 17:34 TEZ YEH MD Discharge Date: 07/02/16 - Discharge Diagnosis (1) TIA (transient ischemic attack) Is this a current diagnosis for this admission?: YesSummary: Multiple risk factors but no clear etiology elucidated. Suspicion for paroxysmal atrial fibrillation contributing to his dizziness and weakness. He is to follow-up with his primary software developer consultant in 1 week for further risk stratification and treatment. (2) Chronic atrial fibrillation Is this a current diagnosis for this admission?: YesSummary: His paroxysmal in nature, he has converted back to a sinus rhythm but still exhibiting the incomplete left bundle branch block. Recommend follow-up with his primary software developer consultant in [address] Porter. Defer initiation of anticoagulation to his primary software developer consultant at the patient' s request. (3) Acute renal failure Is this a current diagnosis for this admission?: YesSummary: Likely prerenal, resolved with IV fluids. (4) Weakness Is this a current diagnosis for this admission?: YesSummary: Likely secondary to the above. Found him ambulating independently in the room without assistance. Seems to be back to baseline and stable for discharge home. (5) COPD, severe Is this a current diagnosis for this admission?: Yes (6) Diabetes mellitus type II, controlled Is this a current diagnosis for this admission?: Yes (7) Hyperlipidemia Is this a current diagnosis for this admission?: Yes (8) Hypertension Is this a current diagnosis for this admission?: Yes (9) Pulmonary nodule, right Is this a current diagnosis for this admission?: YesSummary: Recommend follow-up CT scan if not performed in the last 6 months due to the size of the nodule on chest x-ray. (10) Peripheral arterial disease Is this a current diagnosis for this admission?: Yes - Additional Information Resuscitation Status: Full Code Discharge Diet: Cardiac Discharge Activity: Activity As Tolerated Home Medications: Albuterol Sulfate [Proair HFA Inhalation Aerosol 8.5 gm MDI] 1 puff IH Q4HP PRN 07/01/16 Aspirin [Adult Low Dose Aspirin EC] 81 mg PO BID 07/01/16 Budesonide/Formoterol Fumarate [Symbicort HFA 160-4.5 mcg Inhaler 6 gm] 2 puff IH BID 07/01/16 Insulin Detemir [Levemir Flextouch] 0 units SQ .PERSLIDINGSCALE 07/01/16 Insulin Lispro [Humalog] 0 units SQ .PERSLIDINGSCALE 07/01/16 Metoprolol Tartrate [Lopressor] 50 mg PO BID 07/01/16 Multivitamin [Multivitamins] 1 tab PO DAILY 07/01/16 Rosuvastatin Calcium [Crestor] 40 mg PO QHS 07/01/16 Tiotropium [place] [Spiriva Respimat] 2 puff IH DAILY 07/01/16 History of Present Illness Patient complains of: Dizziness and weakness History of Present Illness: MARIO YEH is a 80 year old male presents to the emergency department from home at the insistence of his daughter who states he became suddenly weak today and unable to bear his own weight. Because of his history of TIA and atrial fibrillation and she thought that further evaluation. He really doesn't know why he is here because he thinks she overreacted and is only willing to stay in the hospital to "keep the peace". He states the reason is weak is because all she will let him do is sit in the chair all day, apparently his daughter is his care provider at home. Hospital Course Hospital Course: He denies headache, vision changes, tinnitus, chest pain, palpitations, fever, chills, cough with phlegm, nausea, vomiting, diarrhea, unilateral weakness, numbness or tingling, dysarthria or difficulty swallowing, difficulty finding his words. Evaluation in the emergency department shows a new left bundle branch block when compared to EKG from 2015 and the remainder of his workup is unremarkable. We were asked to admit for further evaluation of presumed transient ischemic attack. He was admitted overnight and monitored on telemetry and did show paroxysms of atrial fibrillation and occasional bursts of rapid ventricular response but spontaneously converts back to sinus rhythm. He underwent echocardiogram that was unrevealing in that it didn't show any significant valvular disease or wall motion abnormalities. Serial cardiac enzymes were negative for acute ischemia. Extensive metabolic workup shows no laboratory abnormalities in need of correction that might explain his presentation other than mild azotemia corrected with IV fluids. Cardiology was consult it and had no further recommendations at this time other than to follow-up with his primary software developer consultant Dr. Yeh within 1 week to consider additional rhythm controlling medicines with perhaps amiodarone or other such agents in an effort to help him maintain normal sinus rhythm. The paroxysmal nature of his A. fib is a lot thing that seems to correlate with his symptoms at this time. I discussed the case with his daughter my telephone answering all her questions to the best of my ability. At this point he is stable and quite anxious for discharge home. Physical Exam Vital Signs: Temp Pulse Resp BP Pulse Ox 98.2 F 100 20 176/64 H 96 07/02/16 16:05 07/02/16 16:05 07/02/16 16:05 07/02/16 16:05 07/02/16 16:05 Intake & Output 07/01/16 07/02/16 07/03/16 06:59 06:59 06:59 Intake Total 213 Output Total 300 Balance -87 Weight 77 kg PHYSICAL EXAM GENERAL: NAD; well developed, well nourished; no obese; alert and oriented to person, place, time, situation HEENT: normocephalic, atraumatic; EOMI, PERRLA, no conjunctival injection, no scleral icterus; oral mucosa moist; neck supple, no LAD, normal ROM RESPIRATORY: no accessory muscle use, no increased WOB, good air entry bilaterally; no wheezes, rales, rhonchi; no inspiratory crackles CARDIO: no JVD; RRR; no systolic murmur; borderline tachycardia VASCULAR: Right high-pitched carotid bruit; no abdominal bruit; no pallor; 2+ radial, DP pulse; normal capillary refill GI: soft; nondistended; normal bowel sounds; no hepato spleno megaly; no rebound, rigidity, guarding; nontender NEURO: normal patella reflexes; normal sensation; normal motor function; no dysarthria; no nystagmus; tongue protrudes midline; normal finger to nose; able to cross midline with finger to ear MSK: 5/5 strength; normal ROM hips; ambulatory without assistance; no tenderness EXTREMITIES: no calf tender; no palpable cords in calf; no clubbing, cyanosis , pedal edema PSYCH: normal affect, normal mood SKIN: warm; moist; no petechiae; no telengectasias; no jaundice; no rash but very pale Results Laboratory Results: 07/02/16 03:34 07/02/16 03:34 07/02/16 07/02/16 07/02/16 03:34 03:34 06:13 WBC 5.9 RBC 4.65 Hgb 10.9 L Hct 33.8 L MCV 73 L MCH 23.4 L MCHC 32.2 RDW 18.2 H Plt Count 168 Sodium 142.8 Potassium 3.9 Chloride 103 Carbon Dioxide 26 Anion Gap 14 BUN 23 H Creatinine 1.05 Est GFR ( Amer) > 60 Est GFR (Non-Af Amer) > 60 Glucose 160 H Calcium 9.3 Triglycerides 69 Cholesterol 126.23 LDL Cholesterol Direct 73 VLDL Cholesterol 14.0 HDL Cholesterol 41 Urine Color YELLOW Urine Appearance CLEAR Urine pH 5.0 Ur Specific [place] 1.014 Urine Protein NEGATIVE Urine Glucose (UA) 50 H Urine Ketones NEGATIVE Urine Blood NEGATIVE Urine Nitrite NEGATIVE Ur Leukocyte Esterase NEGATIVE Urine WBC (Auto) 1 Urine RBC (Auto) 0 07/01/16 07/02/16 21:40 03:34 Troponin I 0.045 0.062 Impressions: Chest X-Ray 07/01/16 15:13 IMPRESSION: Borderline cardiomegaly with central pulmonary vascular congestion. There is hazy densities noted in the right mid lung and lower lung zones could represent areas of edema, infiltrate, or atelectasis. There is some retrocardiac opacity could represent atelectasis, edema, infiltrate, or aspiration. Correlate clinically. Head CT 07/01/16 15:13 IMPRESSION: CHRONIC CHANGES OF ATROPHY AND MICROVASCULAR ISCHEMIA. No acute intracranial abnormality identified. Qualifiers PATEINT BEING DISCHARGED WITH ANY OF THE FOLLOWING DIAGNOSIS?: No VTE patient discharged on overlapping Therapy?: No Reason(s) for not prescribing Overlap Therapy:: Drug declined by patient - Until such time as he can discuss with his primary software developer consultant Plan Discharge Plan: Discharge home with close outpatient follow-up with his primary care provider and his primary software developer consultant and his vascular surgeon in [place] all within the next 1-2 weeks. He is to return to emergency department if he has any worsening of his condition.
[2016-07-02] MEDS ORDERED: BUDESONIDE/FORMOTEROL 160-4.5 MCG 60 PUFF/6 GM MDI IH SCH (18:00)
[2016-07-02] MEDS ORDERED: (PENDING PHARMACY ID) (Rosuvastatin Calcium [Crestor] 40 MG) PO SCH (22:00)
[2016-07-02] MEDS ORDERED: ATORVASTATIN CALCIUM 80 MG TABLET PO SCH (22:00)
[2016-07-02] MEDS ORDERED: METOPROLOL TARTRATE 50 MG TABLET PO SCH (22:00)
[2016-07-03] MEDS ORDERED: (PENDING PHARMACY ID) (Tiotropium Bromide [Spiriva Respimat] 2 PUFF) IH SCH (10:00)
[2016-07-03] MEDS ORDERED: MULTIVITAMIN TABLET PO SCH (10:00)
[2016-07-03] MEDS ORDERED: (PENDING PHARMACY ID) (Multivitamin [Multivitamins] 1 TAB) PO SCH (10:00)
== END 2016-07-02 16:36 | disposition home or self-care (01) ==
LOC: ER 15:13 → EH 17:34 → INTOOBSV 17:34 → 3N 22:30
PROVIDERS: ADMIT Internal Medicine; ATTEND Internal Medicine
DX: G45.9 Transient cerebral ischemic attack, unspecified (principal); I48.2 Chronic atrial fibrillation; N17.9 Acute kidney failure, unspecified; R53.1 Weakness; J44.9 Chronic obstructive pulmonary disease, unspecified; E11.9 Type 2 diabetes mellitus without complications; E78.5 Hyperlipidemia, unspecified; I10 Essential (primary) hypertension; R91.1 Solitary pulmonary nodule; I73.9 Peripheral vascular disease, unspecified; Z79.4 Long term (current) use of insulin; Z95.1 Presence of aortocoronary bypass graft; I44.7 Left bundle-branch block, unspecified; I25.810 Atherosclerosis of coronary artery bypass graft(s) without angina pectoris; Z95.810 Presence of automatic (implantable) cardiac defibrillator
CPT/HCPCS: 93005 ×2; 99291; 36415 ×2; 82553; 82962 ×2; 82550; 83735; 84100; 85025; 85027; 85610; 85730; 80048; 80053; 81001; 84484 ×2; 83036; 80061; 93306; 71010; 70450; 93010 ×2; 97162; A9270 ×7; J3490 ×3; J7030 ×2; G8978; G8979; G8980; G0378; J1815

== ENCOUNTER 2017-06-12 10:35 | Inpatient (IN) | payer MEDICARE, OTHER ==
[2017-06-12] MEDS ORDERED: CEFTRIAXONE INJ 1000 MG VIAL IV ONE (11:06)
[2017-06-12] MEDS ORDERED: AZITHROMYCIN INJ 500 MG VIAL IV ONE (11:06)
[2017-06-12] MEDS ORDERED: NORMAL SALINE 1000 ML 2,000 ML IV ONE (11:06)
[2017-06-12] MEDS ORDERED: METHYLPREDNISOLONE INJ 125 MG/2 ML SDV IV ONE (11:06)
[2017-06-12 11:18] LABS: ABSOLUTE MONOCYTES (AUTO) 1.5 10^3/uL (0.1-1.4); ABSOLUTE NEUT (AUTO) 10.2 10^3/uL (1.7-8.2); BASOPHILS % (AUTO) 0.3 % (0-2); HEMATOCRIT 35.6 % (37.9-51.0); LYMPHOCYTES % (AUTO) 7.7 % (13-45); MEAN CORPUSCULAR HEMOGLOBIN 29.5 pg (27.0-33.4); MEAN CORPUSCULAR HGB CONC 33.6 g/dL (32.0-36.0); MEAN CORPUSCULAR VOLUME 88 fl (80-97); MONOCYTES % (AUTO) 11.6 % (3-13); PLATELET COUNT 186 10^3/uL (150-450); RED BLOOD COUNT 4.06 10^6/uL (4.35-5.55); RED CELL DISTRIBUTION WIDTH 16.5 % (11.5-14.0); SEGMENTED NEUTROPHILS % (AUTO) 80.4 % (42-78); TOTAL CELLS COUNTED % (AUTO) 100 %; WHITE BLOOD COUNT 12.7 10^3/uL (4.0-10.5)
[2017-06-12 11:34] LABS: ALANINE AMINOTRANSFERASE 67 U/L (21-72); ALBUMIN 3.9 g/dL (3.5-5.0); ALKALINE PHOSPHATASE 179 U/L (38-126); ANION GAP 11 (5-19); ASPARTATE AMINO TRANSFERASE 62 U/L (17-59); BILIRUBIN,DIRECT 0.1 mg/dL (0.0-0.4); BLOOD UREA NITROGEN 20 mg/dL (7-20); CALCIUM 9.1 mg/dL (8.4-10.2); CARBON DIOXIDE 32 mmol/L (22-30); CHLORIDE 94 mmol/L (98-107); CREATINE KINASE 67 U/L (55-170); GLUCOSE 237 mg/dL (75-110); POTASSIUM 3.8 mmol/L (3.6-5.0); SODIUM 137.2 mmol/L (137-145)
--- NOTE | 2017-06-12 11:46 | RADIOLOGY REPORT (SQ) ---
EXAM DESCRIPTION: CHEST SINGLE VIEW COMPLETED DATE/TIME: 06/12/2017 11:27 am REASON FOR STUDY: lung ca, sob, copd COMPARISON: June 2016 EXAM PARAMETERS: NUMBER OF VIEWS: One view. TECHNIQUE: Single frontal radiographic view of the chest acquired. RADIATION DOSE: NA LIMITATIONS: None. FINDINGS: LUNGS AND PLEURA: Consolidative process is identified in the right mid and lower lung fiel d which was not present on the previous study. There is loss of definition of the right hemidiaphrag m and blunting of the right costophrenic angle suggesting an associated right pleural effusion. The left lung remains clear and well expanded. MEDIASTINUM AND HILAR STRUCTURES: No masses. Contour normal. HEART AND VASCULAR STRUCTURES: Heart normal in size. Normal vasculature. BONES: No acute findings. HARDWARE: AICD device is unchanged in position. Patient is status post median sternotomy. OTHER: No other significant finding. IMPRESSION: Consolidative process in the right mid and lower lung field as noted above with associat ed pleural effusion. While this may all be related to a pneumonic infiltrate, the possibility of a r ecurrent mass cannot be excluded. Followup is recommended and if the these changes persist, a chest CT scan may be of value for further evaluation. Other findings as noted above TECHNICAL DOCUMENTATION: JOB ID: [id number] [employer]- All Rights Reserved Reading location - IP/workstation name: [email or web address]
[2017-06-12 11:47] LABS: CREATINE KINASE MB 0.94 ng/mL (<4.55); TROPONIN I 0.029 ng/mL
[2017-06-12 11:54] LABS: VENOUS BLOOD BASE EXCESS 3.5 mmol/L; VENOUS BLOOD HCO3 27.8 mmol/L (20-32); VENOUS BLOOD PH 7.45 (7.30-7.42)
--- NOTE | 2017-06-12 12:06 | ER Document Report ---
ED Respiratory Problem - General Chief Complaint: Shortness Of Breath Stated Complaint: SHORTNESS OF BREATH Time Seen by Provider: 06/12/17 10:42 Mode of Arrival: Medic Information source: Patient, Relative Notes: Patient is a 81-year-old male with history of COPD, lung cancer on immunotherapy infusions who presents to the ER today for shortness of breath that worsened this morning. Family states that he has been weak over the past 2 -3 days. They admit that he has been coughing a little bit more than normal. They admit that he had a fever this morning of 100.4F. They gave him Tylenol. TRAVEL OUTSIDE OF THE [place] IN LAST 30 DAYS: No - Related Data Allergies/Adverse Reactions: No Known Allergies Allergy (Verified 07/05/14 15:03) Past Medical History - General Information source: Patient - Social History Smoking Status: Former Smoker Chew tobacco use (# tins/day): No Frequency of alcohol use: None Drug Abuse: None Family History: Reviewed & Not Pertinent Patient has suicidal ideation: No Patient has homicidal ideation: No - Past Medical History Cardiac Medical History: Reports: Hx Atrial Fibrillation, Hx Heart Attack - 2004 , Hx Hypertension Denies: Hx Coronary Artery Disease Pulmonary Medical History: Reports: Hx Bronchitis, Hx COPD - inh, Hx Pneumonia - hx 2008 Denies: Hx Asthma Neurological Medical History: Denies: Hx Cerebrovascular Accident, Hx Seizures Endocrine Medical History: Reports: Hx Diabetes Mellitus Type 2 Renal/ Medical History: Denies: Hx Peritoneal Dialysis Musculoskeltal Medical History: 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 Psychiatric Medical History: Denies: Hx Depression Past Surgical History: Reports: Hx Coronary Artery Bypass Graft, Hx Pacemaker - Immunizations Hx Diphtheria, Pertussis, Tetanus Vaccination: Yes Hx Pneumococcal Vaccination: 01/11/09 Review of Systems - Review of Systems Constitutional: See HPI EENT: No symptoms reported Cardiovascular: No symptoms reported Respiratory: See HPI Gastrointestinal: No symptoms reported Genitourinary: No symptoms reported Male Genitourinary: No symptoms reported Musculoskeletal: No symptoms reported Skin: No symptoms reported Hematologic/Lymphatic: No symptoms reported Neurological/Psychological: No symptoms reported Physical Exam - Vital signs Vitals: Temp Pulse Resp BP Pulse Ox 98.4 F 112 H 19 113/54 L 100 06/12/17 10:35 06/12/17 10:35 06/12/17 10:35 06/12/17 10:35 06/12/17 10:35 - Notes Notes: PHYSICAL EXAMINATION: GENERAL: Chronically ill-appearing, on nasal cannula, but in no acute distress. HEAD: Atraumatic, normocephalic. EYES: Pupils equal round and reactive to light, extraocular movements intact, sclera anicteric, conjunctiva are normal. ENT: ear canals without erythema or foreign body, TMs pearly mcdonald with good bony landmarks, nares patent, oropharynx clear without exudates. Moist mucous membranes. Airway patent NECK: Normal range of motion, supple without lymphadenopathy LUNGS: wheezes throughout, rhonchi to right lower lobe, no rales HEART: Regular rate and rhythm without murmurs ABDOMEN: Soft, no tenderness. No guarding, no rebound BACK: no vertebral tenderness, normal ROM GI/: no CVA tenderness EXTREMITIES: Normal range of motion, no pitting edema. No cyanosis. NEUROLOGICAL: Cranial nerves grossly intact. Normal sensory/motor exams. PSYCH: Normal mood, normal affect. SKIN: Warm, Dry, normal turgor, no rashes or lesions noted Course - Re-evaluation Re-evalutation: 06/12/17 15:57 Blood cell count is mildly elevated at 12.9, chest x-ray reveals a possible pneumonia and pleural effusion to the right middle and lower lobes. Patient was hypertensive when he came in, 80s over 40s and tachycardic up to the 120s, fluids were hung, antibiotics started and patient's hypotension did resolve, currently 139/64 blood pressure with a pulse of 102 bpm. Patient is usually on 4 L of oxygen at home and is on 4 L here at 95%. Patient admitted to [facility] Re[facility], [facility]ILL[facility] hospitalist at this time. - Vital Signs Vital signs: Temp Pulse Resp BP Pulse Ox 98.4 F 114 H 20 130/50 H 95 06/12/17 10:35 06/12/17 13:42 06/12/17 15:00 06/12/17 13:17 06/12/17 15:08 - Laboratory Result Diagrams: 06/12/17 10:55 06/12/17 10:55 Laboratory results interpreted by me: 06/12/17 06/12/17 06/12/17 10:55 10:55 11:40 WBC 12.7 H RBC 4.06 L Hgb 12.0 L Hct 35.6 L RDW 16.5 H Seg Neutrophils % 80.4 H Lymphocytes % 7.7 L Absolute Neutrophils 10.2 H Absolute Monocytes 1.5 H VBG pH 7.45 H Chloride 94 L Carbon Dioxide 32 H Est GFR (Non-Af Amer) 57 L Glucose 237 H AST 62 H Alkaline Phosphatase 179 H Total Protein 6.0 L Discharge - Discharge Clinical Impression: Pneumonia Qualifiers: Pneumonia type: due to unspecified organism Laterality: right Lung location: lower lobe of lung Qualified Code(s): J18.1 - Lobar pneumonia, unspecified organism Lung cancer Qualifiers: Laterality: unspecified laterality Lung location: unspecified part of lung Qualified Code(s): C34.90 - Malignant neoplasm of unspecified part of unspecified bronchus or lung Condition: Stable Disposition: ADMITTED INPATIENT Admitting Provider: Lisset Ramoslin Unit Admitted: Telemetry
[2017-06-12] MEDS ORDERED: LEVALBUTEROL HCL NEB 1.25 MG/3 ML AMPUL NEB PRN (12:58)
[2017-06-12] MEDS ORDERED: ACETAMINOPHEN 325 MG TABLET PO PRN (13:04)
[2017-06-12] MEDS ORDERED: GUAIFENESIN SYRP 200 MG/10 ML UDC PO PRN (13:04)
[2017-06-12] MEDS ORDERED: GLUCAGON,HUMAN RECOMB 1 MG INJ IM PRN ×2 (13:08→17:28)
[2017-06-12] MEDS ORDERED: INSULIN LISPRO 100 UNIT/ML 3 ML VIAL SUBCUT PRN ×3 (13:08→19:30)
[2017-06-12] MEDS ORDERED: DEXTROSE 50%-WATER 25 GM/50 ML DISP.SYRIN IV PRN ×4 (13:08→17:28)
[2017-06-12] MEDS ORDERED: DEXTROSE 40% GEL 15 GM TUBE PO PRN ×4 (13:08→17:28)
[2017-06-12] MEDS ORDERED: DILTIAZEM HCL/D5W 125 MG/125 ML RTUINJ IV PRN (13:09)
[2017-06-12] MEDS ORDERED: PHARMACY COMMUNICATION ORDER MC NR (13:15)
--- NOTE | 2017-06-12 13:37 | PDOC H&P ---
History of Present Illness Admission Date/PCP: 06/12/17 12:17 TEZ YEH MD Patient complains of: Shortness of breath History of Present Illness: MARIO YEH is a 81 year old male with a past medical history of atrial fibrillation, COPD, emphysema, insulin-dependent diabetes mellitus, peripheral arterial disease, [place] now status post 2 vessel bypass with AICD/pacemaker, and lung cancer with liver metastasis who presented to the emergency today with a complaint of increased dyspnea and weakness resulting in a fall. The patient was seen recently by their primary care provider and started on a prednisone taper and Levaquin for presumed community-acquired pneumonia. He is oxygen dependent at home at 4 L/min. The patient and daughter states that he had increased confusion today described as disorientation with regard to that date and increased forgetfulness. The patient states that he is feeling increased weakness and fatigue and that he fell while getting dressed today. He reports a skin tear to the posterior right hand related to the fall but denies additional injuries. He did not hit his head and denies LOC. The patient's daughter states that the increased confusion and weakness is what prompted them to seek evaluation in the emergency department today. Initial evaluation reveals leukocytosis of 12.7, mildly elevated LFTs, indeterminate troponin, and a chest x-ray demonstrating a consolidative process to the right middle and lower lung underwood with associated pleural effusion worrisome for pneumonia with a pneumonic infiltrate versus recurrent lung mass. He is also noted to be in atrial fibrillation with RVR; heart rate of 120-150 while at rest. He is tachypneic at a rate of 25 but maintaining oxygen saturations on his baseline oxygen requirement. He is referred to the hospitalist service for management of pneumonia and A. fib. Past Medical History Cardiac Medical History: Reports: Atrial Fibrillation, Myocardial Infarction - 2005, Hyperlipidema, Hypertension Denies: Coronary Artery Disease Pulmonary Medical History: Reports: Bronchitis, Chronic Obstructive Pulmonary Disease (COPD) - inh, Pneumonia - hx 2009 Denies: Asthma EENT Medical History: Reports: None Neurological Medical History: Reports: None Denies: Seizures Endocrine Medical History: Reports: Diabetes Mellitus Type 2 - Insulin-dependent Denies: Hypothyroidism Renal/ Medical History: Reports: None Malignancy Medical History: Reports: Lung Cancer - Liver metastasis GI Medical History: Reports: None Musculoskeltal Medical History: Reports: Arthritis - mild Skin Medical History: Reports: None Psychiatric Medical History: Denies: Depression, Tobacco Dependency Traumatic Medical History: Reports: None Hematology: Denies: Anemia Infectious Medical History: Reports: None Past Surgical History Past Surgical History: Reports: Carotid Endarterectomy, Coronary Artery Bypass Graft, Pacemaker - AICD Social History Information Source: Patient, Relative Lives with: Family Smoking Status: Former Smoker Last Time Smoked: 1979 Frequency of Alcohol Use: None Hx Recreational Drug Use: No Drugs: None Hx Prescription Drug Abuse: No - Advance Directive Resuscitation Status: Full Code Surrogate healthcare decision maker:: Sabine Yeh, patient's daughter, and [phone] Family History Family History: CAD, CVA Parental Family History Reviewed: Yes Children Family History Reviewed: Yes Sibling(s) Family History Reviewed.: NA Medication/Allergy Allergies/Adverse Reactions: No Known Allergies Allergy (Verified 07/05/14 15:03) Review of Systems Constitutional: PRESENT: fatigue, fever(s), weakness. ABSENT: chills, headache( s), weight gain, weight loss Eyes: ABSENT: visual disturbances Ears: ABSENT: hearing changes Nose, Mouth, and Throat: ABSENT: headache(s), sore throat Cardiovascular: PRESENT: dyspnea on exertion. ABSENT: chest pain, edema, orthropnea, palpitations Respiratory: PRESENT: cough, dyspnea, hemoptysis, sputum Gastrointestinal: ABSENT: abdominal pain, constipation, diarrhea, hematemesis, hematochezia, nausea, vomiting Genitourinary: ABSENT: dysuria, hematuria Musculoskeletal: ABSENT: joint swelling Integumentary: ABSENT: rash, wounds Neurological: PRESENT: confusion, weakness. ABSENT: abnormal gait, abnormal speech, dizziness, focal weakness, syncope Psychiatric: ABSENT: anxiety, depression, homidical ideation, suicidal ideation Endocrine: ABSENT: cold intolerance, heat intolerance, polydipsia, polyuria Hematologic/Lymphatic: ABSENT: easy bleeding, easy bruising Physical Exam Vital Signs: Temp Pulse Resp BP Pulse Ox 98.4 F 112 H 22 H 117/57 L 93 06/12/17 10:35 06/12/17 10:35 06/12/17 12:16 06/12/17 12:16 06/12/17 12:16 General appearance: PRESENT: no acute distress, hard of hearing, thin, well- developed, well-nourished Head exam: PRESENT: atraumatic, normocephalic Eye exam: PRESENT: conjunctiva pink, EOMI, PERRLA. ABSENT: scleral icterus Ear exam: PRESENT: normal external ear exam Mouth exam: PRESENT: moist, tongue midline Neck exam: ABSENT: carotid bruit, JVD, lymphadenopathy, thyromegaly Respiratory exam: PRESENT: decreased breath sounds - Right lower field, rhonchi , symmetrical, wheezes - Bilateral, other - Supplemental oxygen at 4 L/min. ABSENT: rales Cardiovascular exam: PRESENT: irregular rhythm, +S1, +S2, systolic murmur, tachycardia. ABSENT: diastolic murmur, rubs Pulses: PRESENT: normal dorsalis pedis pul Vascular exam: PRESENT: normal capillary refill GI/Abdominal exam: PRESENT: normal bowel sounds, soft. ABSENT: distended, guarding, mass, organolmegaly, rebound, tenderness Rectal exam: PRESENT: deferred Extremities exam: PRESENT: full ROM. ABSENT: calf tenderness, clubbing, pedal edema Neurological exam: PRESENT: alert, awake, oriented to person, oriented to place , oriented to time, oriented to situation, CN II-XII grossly intact, other - Forgetful. ABSENT: motor sensory deficit Psychiatric exam: PRESENT: appropriate affect, normal mood. ABSENT: homicidal ideation, suicidal ideation Skin exam: PRESENT: dry, warm. ABSENT: cyanosis, intact - Skin tear right posterior, rash Results Impressions: Chest X-Ray 06/12/17 11:08 IMPRESSION: Consolidative process in the right mid and lower lung field as noted above with associated pleural effusion. While this may all be related to a pneumonic infiltrate, the possibility of a recurrent mass cannot be excluded. Followup is recommended and if the these changes persist, a chest CT scan may be of value for further evaluation. Other findings as noted above Assessment & Plan - Diagnosis (1) Pneumonia Qualifiers: Pneumonia type: due to unspecified organism Laterality: right Lung location: lower lobe of lung Qualified Code(s): J18.1 - Lobar pneumonia, unspecified organism Is this a current diagnosis for this admission?: Yes Plan: Right middle and lower lobe pneumonia in the setting of a known right lung cancer with liver metastasis. The patient presented with low-grade fever, tachypnea, increased sputum production with hemoptysis, dyspnea and weakness. He was being treated as an outpatient with p.o. Levaquin and prednisone but has had worsening symptoms over the last 2-3 days. Chest x-ray demonstrates consolidation of the right mid and lower lung underwood with associated pleural effusion concerning for pneumonia versus lung mass. Blood cultures: Pending The patient is admitted to [facility] on continuous cardiac telemetry. Supplemental oxygen as required to maintain oxygen saturations greater than 88%. He is empirically placed on cefepime and Levaquin for pseudomonal and MSSA coverage as wound and bronchial washing cultures have been positive for both of these organisms. He is provided scheduled duo nebs and as needed Xopenex breathing treatments. He will be placed on Mucinex twice daily. Incentive spirometry to bedside. (2) Atrial fibrillation with rapid ventricular response Is this a current diagnosis for this admission?: Yes Plan: The patient is noted to be in A. fib with RVR; heart rate of 120-150. His home medications include metoprolol and ASA which she has not been able to take secondary to acute illness. A. fib and RVR may be a result of missed medications as well as probable right lung pneumonia. Troponin is indeterminate; will trend. He is admitted to the [facility] on continuous cardiac telemetry. Will start a Cardizem drip. Resume home medications once reconciled by pharmacy. Continue daily aspirin. (3) Sepsis Qualifiers: Sepsis type: sepsis due to unspecified organism Qualified Code(s): A41.9 - Sepsis, unspecified organism Is this a current diagnosis for this admission?: Yes Plan: The patient presents with sepsis due to pneumonia present on admission evidenced by increased confusion, WBCs of 12.7, tachycardia with heart rate of 120-150, tachypnea with respiratory rate of 25, hypoxia with an oxygen saturation of 87% while on supplemental oxygen, and hypotension noted to be 89/ 43. Blood cultures are pending. Urine culture is ordered. The patient is empirically placed on cefepime and Levaquin as he does have a history of MSSA and pseudomonal infections. He has received 2 L of normal saline per ED with resultant improvement in blood pressures. We will continue maintenance IV fluids. Remaining plan as above. (4) Diabetes mellitus type II, controlled Qualifiers: Diabetes mellitus complication status: with circulatory complication Diabetes mellitus complication detail: with other circulatory complications Diabetes mellitus manager terminal insulin use: with manager terminal use Qualified Code(s) : E11.59 - Type 2 diabetes mellitus with other circulatory complications Is this a current diagnosis for this admission?: Yes Plan: The patient is placed on a cardiac and consistent carb diet. Will continue his home dose Levemir of 20 units nightly. Accu-Cheks before meals and at bedtime with Humalog for sliding scale coverage. (5) Hyperlipidemia Qualifiers: Hyperlipidemia type: unspecified Qualified Code(s): E78.5 - Hyperlipidemia , unspecified Is this a current diagnosis for this admission?: Yes Plan: The patient is placed on Lipitor 20 mg nightly. Cardiac diet. - Time Time Spent: Greater than 70 Minutes Medications reviewed and adjusted accordingly: Yes - Inpatient Certification Based on my medical assessment, after consideration of the patient's comorbidities, presenting symptoms, or acuity I expect that the services needed warrant INPATIENT care.: Yes I certify that my determination is in accordance with my understanding of Medicare's requirements for reasonable and necessary INPATIENT services [42 CFR 412.3e].: Yes Medical Necessity: Need For IV Fluids, Need For Continuous Telemetry Monitoring , Need for IV Antibiotics
[2017-06-12] MEDS: IPRATROPIUM/ALBUTEROL 0.5-2.5 MG/3 ML AMPUL NEB SCH ×2 (13:42→20:58)
--- NOTE | 2017-06-12 13:57 | RADIOLOGY REPORT (SQ) ---
EXAM DESCRIPTION: CT HEAD WITHOUT COMPLETED DATE/TIME: 06/12/2017 1:32 pm REASON FOR STUDY: fall, confusion, known Lung CA COMPARISON: June 2016 TECHNIQUE: Axial images acquired through the brain without intravenous contrast. Images reviewed wi th bone, brain and subdural windows. Images stored on PACS. All CT scanners at this facility use dose modulation, iterative reconstruction, and/or weight based d osing when appropriate to reduce radiation dose to as low as reasonably achievable (ALARA). [facility]: Dose Right [facility]: CareDose [facility]: Dose Right [facility]: Teradose 4D [facility]: [employer] RADIATION DOSE: CT Rad equipment meets quality standard of care and radiation dose reduction techniq ues were employed. CTDIvol: 49.0 mGy. DLP: 783 mGy-cm. mGy. LIMITATIONS: None. FINDINGS: VENTRICLES: Prominent. CEREBRUM: No masses. No hemorrhage. No midline shift. Areas of low density in the white matter mos t likely due to chronic micro-vascular ischemic change. No evidence for acute infarction. CEREBELLUM: No masses. No hemorrhage. No alteration of density. No evidence for acute infarction. EXTRAAXIAL SPACES: Mild age-related involutional change. No fluid collections. No masses. ORBITS AND GLOBE: No intra- or extraconal masses. Normal contour of globe without masses. CALVARIUM: No fracture. PARANASAL SINUSES: No fluid or mucosal thickening. SOFT TISSUES: No mass or hematoma. OTHER: No other significant finding. IMPRESSION: MILD CHRONIC CHANGES OF ATROPHY AND MICROVASCULAR ISCHEMIA. NO ACUTE PROCESS. EVIDENCE OF ACUTE STROKE: NO. TECHNICAL DOCUMENTATION: JOB ID: [id number] Quality ID # [id number]: Final reports with documentation of one or more dose reduction techniques (e.g., Au tomated exposure control, adjustment of the mA and/or kV according to patient size, use of iterative reconstruction technique) 2010 [email or web address]- All Rights Reserved Reading location - IP/workstation name: [email or web address]
[2017-06-12] MEDS: NORMAL SALINE 1000 ML 1,000 ML IV PRN (14:37)
[2017-06-12] MEDS: HEPARIN SOD (PORCINE) 5,000 UNIT/ML 1 ML SYRINGE SUBCUT SCH ×2 (14:37→21:35)
--- NOTE | 2017-06-12 14:48 | EKG REPORT ---
SEVERITY:- ABNORMAL ECG - ATRIAL FIBRILLATION, V-RATE 99-169 NONSPECIFIC INTRAVENTRICULAR CONDUCTION DELAY LBBB VS LVH, PATTERN UNCHANGED FROM 07/02/16 EKG, CLINICAL CORRELATION NEEDED. : Confirmed by: Noe Quintanilla MD 12-Jun-2017 14:47:54
[2017-06-12 16:55] LABS: APPEARANCE,URINE SLIGHTLY-CLOUDY; BILIRUBIN,URINE NEGATIVE (NEGATIVE); COLOR,URINE YELLOW; GLUCOSE, URINE 50 mg/dL (NEGATIVE); KETONES,URINE TRACE mg/dL (NEGATIVE); LEUKOCYTE ESTERASE,URINE NEGATIVE (NEGATIVE); NITRITE,URINE NEGATIVE (NEGATIVE); PROTEIN,URINE 100 mg/dL (NEGATIVE); URINE SPECIFIC GRAVITY 1.011; UROBILINOGEN,URINE NEGATIVE mg/dL (<2.0)
[2017-06-12] MEDS: LEVOFLOXACIN 750 MG/D5W RTU 750 MG/150 ML RTUPB IV SCH (18:39)
[2017-06-12] MEDS: METOPROLOL TARTRATE 50 MG TABLET PO SCH (18:42)
[2017-06-12] MEDS ORDERED: ASPIRIN 81 MG TABLET, CHEWABLE PO ONE (21:00)
[2017-06-12] MEDS: METHYLPREDNISOLONE INJ 40 MG/1 ML SDV IV SCH (21:35)
[2017-06-12] MEDS: FAMOTIDINE 20 MG TABLET PO SCH (21:35)
[2017-06-12] MEDS: GUAIFENESIN 600 MG TABLET.SA PO SCH (21:35)
[2017-06-12] MEDS: ATORVASTATIN CALCIUM 20 MG TABLET PO SCH (21:35)
[2017-06-12] MEDS: CEFEPIME HCL 2 GM in DEXTROSE 5%-WATER 100 ML IV SCH (21:41)
[2017-06-12] MEDS ORDERED: CEFEPIME 2 GM/D5W RTU 50 ML IV SCH (22:00)
[2017-06-12] MEDS ORDERED: INSULIN DETEMIR 100 UNIT/ML 3 ML PEN SUBCUT SCH (22:00)
[2017-06-12] MEDS: INSULIN LISPRO 100 UNIT/ML 3 ML VIAL SUBCUT PRN (22:26)
[2017-06-13] MEDS: IPRATROPIUM/ALBUTEROL 0.5-2.5 MG/3 ML AMPUL NEB SCH ×4 (02:17→20:39)
[2017-06-13] MEDS: METOPROLOL TARTRATE 50 MG TABLET PO SCH ×2 (05:37→17:14)
[2017-06-13] MEDS: HEPARIN SOD (PORCINE) 5,000 UNIT/ML 1 ML SYRINGE SUBCUT SCH ×3 (05:37→21:56)
[2017-06-13] MEDS: METHYLPREDNISOLONE INJ 40 MG/1 ML SDV IV SCH ×3 (05:42→21:56)
[2017-06-13 06:19] LABS: HEMATOCRIT 32.1 % (37.9-51.0); HEMOGLOBIN 11.4 g/dL (13.5-17.0); MEAN CORPUSCULAR HEMOGLOBIN 30.3 pg (27.0-33.4); MEAN CORPUSCULAR HGB CONC 35.5 g/dL (32.0-36.0); MEAN CORPUSCULAR VOLUME 86 fl (80-97); PLATELET COUNT 164 10^3/uL (150-450); RED BLOOD COUNT 3.75 10^6/uL (4.35-5.55); RED CELL DISTRIBUTION WIDTH 16.3 % (11.5-14.0); WHITE BLOOD COUNT 9.6 10^3/uL (4.0-10.5)
[2017-06-13 06:36] LABS: ABSOLUTE LYMPHOCYTES# (MANUAL) 0.3 10^3/uL (0.5-4.7); ABSOLUTE MONOCYTES # (MANUAL) 0.2 10^3/uL (0.1-1.4); ABSOLUTE NEUTROPHILS# (MANUAL) 9.1 10^3/uL (1.7-8.2); ALANINE AMINOTRANSFERASE 60 U/L (21-72); ALBUMIN 3.2 g/dL (3.5-5.0); ALKALINE PHOSPHATASE 142 U/L (38-126); ANION GAP 9 (5-19); ASPARTATE AMINO TRANSFERASE 50 U/L (17-59); BAND NEUTROPHILS % (MANUAL) 2 % (3-5); BASOPHILS % (MANUAL) 0 % (0-2); BILIRUBIN,DIRECT 0.2 mg/dL (0.0-0.4); BILIRUBIN,TOTAL 0.6 mg/dL (0.2-1.3); BLOOD UREA NITROGEN 22 mg/dL (7-20); CALCIUM 8.8 mg/dL (8.4-10.2); CARBON DIOXIDE 27 mmol/L (22-30); CHLORIDE 101 mmol/L (98-107); EOSINOPHILS % (MANUAL) 0 % (0-6); GLUCOSE 198 mg/dL (75-110); LYMPHOCYTES % (MANUAL) 2 % (13-45); MONOCYTES % (MANUAL) 2 % (3-13); POTASSIUM 3.8 mmol/L (3.6-5.0); SEGMENTED NEUTROPHILS % (MAN) 93 % (42-78); SODIUM 136.8 mmol/L (137-145); TOTAL CELLS COUNTED 100; TOTAL PROTEIN 5.3 g/dL (6.3-8.2)
[2017-06-13 06:38] LABS: ACANTHOCYTES SLIGHT; ANISOCYTOSIS 1+; OVALOCYTES 1+; PLATELET COMMENT ADEQUATE; POIKILOCYTOSIS 1+
[2017-06-13] MEDS: INSULIN LISPRO 100 UNIT/ML 3 ML VIAL SUBCUT PRN ×4 (09:19→21:56)
[2017-06-13] MEDS: INSULIN GLARGINE,HUM.REC.ANLOG 300 UNIT/3 ML INSULN.PEN SUBCUT SCH (09:19)
[2017-06-13] MEDS: MULTIVITAMIN TABLET PO SCH (09:19)
[2017-06-13] MEDS: OMEGA-3 ACID ETHYL ESTERS 1 GM CAPSULE PO SCH (09:19)
[2017-06-13] MEDS: FAMOTIDINE 20 MG TABLET PO SCH ×2 (09:20→21:56)
[2017-06-13] MEDS: CEFEPIME HCL 2 GM in DEXTROSE 5%-WATER 100 ML IV SCH ×2 (09:20→21:57)
[2017-06-13] MEDS: GUAIFENESIN 600 MG TABLET.SA PO SCH ×2 (09:20→21:56)
[2017-06-13] MEDS: ASPIRIN 81 MG TABLET, CHEWABLE PO SCH (09:20)
[2017-06-13] MEDS ORDERED: (PENDING PHARMACY ID) (Multivit-Min/Fa/Lycopen/Lutein [Centrum Silver Men Tablet] 1 EACH) PO SCH (10:00)
[2017-06-13] MEDS ORDERED: (PENDING PHARMACY ID) (Omega-3 Fatty Acids/Fish Oil [Fish Oil 1,000 Mg Capsule] 1 EACH) PO SCH (10:00)
[2017-06-13] MEDS ORDERED: DILTIAZEM HCL 30 MG TABLET ONE (12:24)
[2017-06-13] MEDS ORDERED: DILTIAZEM HCL 30 MG TABLET PO ONE (12:30)
--- NOTE | 2017-06-13 13:59 | PDOC PROGRESS REPORT ---
Subjective Progress Note for:: 06/13/17 Subjective:: The patient is a 81-year-old male with a past medical history of atrial fibrillation, COPD, emphysema, insulin-dependent diabetes mellitus, peripheral arterial disease, [place] status post 2 vessel bypass with AICD/pacemaker, and lung cancer with liver metastasis who was admitted on 06/12/17 for acute on chronic respiratory failure with hypoxia secondary to pneumonia in the presence of advanced lung cancer as well as atrial fibrillation with RVR. The patient is seen on morning rounds. He is found resting in bed comfortably on his baseline oxygen requirement of 4 L/min via nasal cannula. He states that he is feeling pain today and denies cough or dyspnea outside than his normal state of health. He denies chest pain and palpitations. He is noted to be hypoxic at 86% while on 4 L, this was increased to 5 L/min with increased SPO2 to 94%. He has no new questions or concerns at this time. Reason For Visit: PNEUMONIA Physical Exam Vital Signs: Temp Pulse Resp BP Pulse Ox 97.9 F 79 20 131/57 H 100 06/13/17 12:02 06/13/17 12:02 06/13/17 12:02 06/13/17 12:34 06/13/17 12:02 Intake & Output 06/12/17 06/13/17 06/14/17 06:59 06:59 06:59 Intake Total 2114 237 Output Total 600 600 Balance 1514 -363 Weight 69.1 kg General appearance: PRESENT: no acute distress, well-developed, well-nourished Head exam: PRESENT: atraumatic, normocephalic Eye exam: PRESENT: conjunctiva pink, EOMI, PERRLA. ABSENT: scleral icterus Ear exam: PRESENT: normal external ear exam Mouth exam: PRESENT: moist, tongue midline Neck exam: ABSENT: carotid bruit, JVD, lymphadenopathy, thyromegaly Respiratory exam: PRESENT: clear to auscultation saritha, decreased breath sounds - Bibasilar, symmetrical, unlabored. ABSENT: rales, rhonchi, wheezes Cardiovascular exam: PRESENT: RRR, +S1, +S2. ABSENT: diastolic murmur, rubs, systolic murmur Pulses: PRESENT: normal dorsalis pedis pul Vascular exam: PRESENT: normal capillary refill GI/Abdominal exam: PRESENT: normal bowel sounds, soft. ABSENT: distended, guarding, mass, organolmegaly, rebound, tenderness Rectal exam: PRESENT: deferred Extremities exam: PRESENT: full ROM. ABSENT: calf tenderness, clubbing, pedal edema Neurological exam: PRESENT: alert, awake, oriented to person, oriented to place , oriented to time, oriented to situation, CN II-XII grossly intact. ABSENT: motor sensory deficit Psychiatric exam: PRESENT: appropriate affect, normal mood. ABSENT: homicidal ideation, suicidal ideation Skin exam: PRESENT: dry, intact, warm. ABSENT: cyanosis, rash Results Laboratory Results: 06/13/17 04:55 06/13/17 04:55 06/12/17 06/13/17 06/13/17 15:26 04:55 04:55 WBC 9.6 RBC 3.75 L Hgb 11.4 L Hct 32.1 L MCV 86 MCH 30.3 MCHC 35.5 RDW 16.3 H Plt Count 164 Seg Neutrophils % Not Reportable Lymphocytes % Not Reportable Monocytes % Not Reportable Eosinophils % Not Reportable Basophils % Not Reportable Absolute Neutrophils Not Reportable Absolute Lymphocytes Not Reportable Absolute Monocytes Not Reportable Absolute Eosinophils Not Reportable Absolute Basophils Not Reportable Sodium 136.8 L Potassium 3.8 Chloride 101 Carbon Dioxide 27 Anion Gap 9 BUN 22 H Creatinine 0.73 Est GFR ( Amer) > 60 Est GFR (Non-Af Amer) > 60 Glucose 198 H Calcium 8.8 Total Bilirubin 0.6 AST 50 ALT 60 Alkaline Phosphatase 142 H Total Protein 5.3 L Albumin 3.2 L Urine Color YELLOW Urine Appearance SLIGHTLY-CLOUDY Urine pH 7.0 Ur Specific [place] 1.011 Urine Protein 100 H Urine Glucose (UA) 50 H Urine Ketones TRACE H Urine Blood NEGATIVE Urine Nitrite NEGATIVE Ur Leukocyte Esterase NEGATIVE Urine WBC (Auto) 1 Urine RBC (Auto) 1 06/12/17 06/12/17 06/12/17 15:15 19:00 20:45 Troponin I 0.102 0.144 0.119 Impressions: Head CT 06/12/17 00:00 IMPRESSION: MILD CHRONIC CHANGES OF ATROPHY AND MICROVASCULAR ISCHEMIA. NO ACUTE PROCESS. EVIDENCE OF ACUTE STROKE: NO. Chest X-Ray 06/12/17 11:08 IMPRESSION: Consolidative process in the right mid and lower lung field as noted above with associated pleural effusion. While this may all be related to a pneumonic infiltrate, the possibility of a recurrent mass cannot be excluded. Followup is recommended and if the these changes persist, a chest CT scan may be of value for further evaluation. Other findings as noted above Assessment & Plan - Diagnosis (1) Pneumonia Qualifiers: Pneumonia type: due to unspecified organism Laterality: right Lung location: lower lobe of lung Qualified Code(s): J18.1 - Lobar pneumonia, unspecified organism Is this a current diagnosis for this admission?: Yes Plan: Right middle and lower lobe pneumonia in the setting of a known right lung cancer with liver metastasis. The patient was afebrile overnight, his tachypnea and tachycardia have resolved. He does continue to require more than his baseline oxygen requirement ; he is currently on 5 L/min via nasal cannula. Chest x-ray demonstrates consolidation of the right mid and lower lung underwood with associated pleural effusion concerning for pneumonia versus lung mass. Blood cultures: No growth at 24 hours The patient is admitted to [facility] on continuous cardiac telemetry. Supplemental oxygen as required to maintain oxygen saturations greater than 88%. He is empirically placed on cefepime and Levaquin for pseudomonal and MSSA coverage as wound and bronchial washing cultures have been positive for both of these organisms. Will narrow antibiotics as cultures result. He is provided scheduled duo nebs and as needed Xopenex breathing treatments. He will be placed on Mucinex twice daily. Incentive spirometry to bedside. Patient is encouraged to get out of bed with assistance for meals. (2) Atrial fibrillation with rapid ventricular response Is this a current diagnosis for this admission?: Yes Plan: The patient converted to normal sinus rhythm overnight. A. fib with RVR is likely a result of missed medications in the setting of pneumonia. Troponin elevated to 0.144 and now trending down. This is likely floor representative of demand ischemia as the patient denies chest discomfort. We will continue to monitor. He is admitted to the IM on continuous cardiac telemetry. We will repeat EKG. We will transition to p.o. Cardizem; start Cardizem 30 mg p.o. every 6 hours. Discontinue Cardizem drip 1 hour following administration of first p.o. dose. Continue metoprolol 50 mg twice daily. Continue daily aspirin. We will consult cardiology; appreciate their evaluation recommendations. (3) Sepsis Qualifiers: Sepsis type: sepsis due to unspecified organism Qualified Code(s): A41.9 - Sepsis, unspecified organism Is this a current diagnosis for this admission?: Yes Plan: The patient presents with sepsis due to pneumonia present on admission evidenced by increased confusion, WBCs of 12.7, tachycardia with heart rate of 120-150, tachypnea with respiratory rate of 25, hypoxia with an oxygen saturation of 87% while on supplemental oxygen, and hypotension noted to be 89/ 43. Blood cultures: No growth at 24 hours. Urine culture: Growth at 1 day The patient is empirically placed on cefepime and Levaquin as he does have a history of MSSA and pseudomonal infections. He has received 2 L of normal saline per ED with resultant improvement in blood pressures. We will continue maintenance IV fluids. Remaining plan as above. (4) Diabetes mellitus type II, controlled Qualifiers: Diabetes mellitus complication status: with circulatory complication Diabetes mellitus complication detail: with other circulatory complications Diabetes mellitus terminal makeup operator insulin use: with intermediate use Qualified Code(s) : E11.59 - Type 2 diabetes mellitus with other circulatory complications Is this a current diagnosis for this admission?: Yes Plan: The patient is placed on a cardiac and consistent carb diet. Will continue his home dose Levemir of 22 units daily. Accu-Cheks before meals and at bedtime with Humalog for sliding scale coverage. (5) Hyperlipidemia Qualifiers: Hyperlipidemia type: unspecified Qualified Code(s): E78.5 - Hyperlipidemia , unspecified Is this a current diagnosis for this admission?: Yes Plan: The patient is placed on Lipitor 20 mg nightly. Cardiac diet. (6) Full code status Is this a current diagnosis for this admission?: Yes - Time Time Spent with patient: 25-34 minutes Medications reviewed and adjusted accordingly: Yes
[2017-06-13] MEDS: LEVOFLOXACIN 750 MG/D5W RTU 750 MG/150 ML RTUPB IV SCH (17:13)
[2017-06-13] MEDS: DILTIAZEM HCL 30 MG TABLET PO SCH (17:14)
[2017-06-13] MEDS: METOPROLOL TARTRATE PF/INJ 5 MG/5 ML SDV IV PRN (17:15)
--- NOTE | 2017-06-13 18:04 | EKG REPORT ---
SEVERITY:- ABNORMAL ECG - SINUS RHYTHM VENTRICULAR PREMATURE COMPLEX NONSPECIFIC INTRAVENTRICULAR CONDUCTION DELAY CONSIDER ANTEROSEPTAL INFARCT : Confirmed by: Noe Quintanilla MD 13-Jun-2017 18:02:33
[2017-06-13] MEDS: ATORVASTATIN CALCIUM 20 MG TABLET PO SCH (21:56)
[2017-06-14] MEDS: DILTIAZEM HCL 30 MG TABLET PO SCH ×4 (00:50→17:53)
[2017-06-14] MEDS: NORMAL SALINE 1000 ML 1,000 ML IV PRN ×2 (00:52→17:50)
[2017-06-14] MEDS: IPRATROPIUM/ALBUTEROL 0.5-2.5 MG/3 ML AMPUL NEB SCH ×4 (02:26→23:28)
[2017-06-14] MEDS: HEPARIN SOD (PORCINE) 5,000 UNIT/ML 1 ML SYRINGE SUBCUT SCH ×3 (06:16→22:44)
[2017-06-14] MEDS: METOPROLOL TARTRATE 50 MG TABLET PO SCH ×2 (06:16→17:53)
[2017-06-14] MEDS: METHYLPREDNISOLONE INJ 40 MG/1 ML SDV IV SCH (06:17)
[2017-06-14 06:31] LABS: ANION GAP 10 (5-19); BLOOD UREA NITROGEN 22 mg/dL (7-20); CALCIUM 9.2 mg/dL (8.4-10.2); CARBON DIOXIDE 32 mmol/L (22-30); CHLORIDE 96 mmol/L (98-107); GLUCOSE 336 mg/dL (75-110); POTASSIUM 4.5 mmol/L (3.6-5.0); SODIUM 138.2 mmol/L (137-145)
[2017-06-14 07:16] LABS: HEMOGLOBIN 12.3 g/dL (13.5-17.0); MEAN CORPUSCULAR HEMOGLOBIN 29.9 pg (27.0-33.4); MEAN CORPUSCULAR HGB CONC 34.1 g/dL (32.0-36.0); MEAN CORPUSCULAR VOLUME 88 fl (80-97); PLATELET COUNT 169 10^3/uL (150-450); RED CELL DISTRIBUTION WIDTH 16.2 % (11.5-14.0)
[2017-06-14 08:01] LABS: ABSOLUTE LYMPHOCYTES# (MANUAL) 0.4 10^3/uL (0.5-4.7); ABSOLUTE MONOCYTES # (MANUAL) 0.6 10^3/uL (0.1-1.4); BASOPHILS % (MANUAL) 0 % (0-2); EOSINOPHILS % (MANUAL) 0 % (0-6); LYMPHOCYTES % (MANUAL) 4 % (13-45); MONOCYTES % (MANUAL) 5 % (3-13); SEGMENTED NEUTROPHILS % (MAN) 91 % (42-78); TOTAL CELLS COUNTED 100
[2017-06-14 08:04] LABS: OVALOCYTES 2+; TOXIC GRANULATION SLIGHT
[2017-06-14 08:05] LABS: ANISOCYTOSIS 1+; PLATELET COMMENT ADEQUATE; PLATELET LARGE PRESENT; POIKILOCYTOSIS 1+
[2017-06-14] MEDS: METOPROLOL TARTRATE PF/INJ 5 MG/5 ML SDV IV PRN (08:40)
[2017-06-14] MEDS: INSULIN GLARGINE,HUM.REC.ANLOG 300 UNIT/3 ML INSULN.PEN SUBCUT SCH (09:25)
[2017-06-14] MEDS: INSULIN LISPRO 100 UNIT/ML 3 ML VIAL SUBCUT PRN ×4 (09:25→22:44)
[2017-06-14] MEDS: CEFEPIME HCL 2 GM in DEXTROSE 5%-WATER 100 ML IV SCH ×2 (09:25→22:45)
[2017-06-14] MEDS: ASPIRIN 81 MG TABLET, CHEWABLE PO SCH (09:26)
[2017-06-14] MEDS: GUAIFENESIN 600 MG TABLET.SA PO SCH ×2 (09:26→22:44)
[2017-06-14] MEDS: MULTIVITAMIN TABLET PO SCH (09:26)
[2017-06-14] MEDS: FAMOTIDINE 20 MG TABLET PO SCH ×2 (09:26→22:44)
[2017-06-14] MEDS: OMEGA-3 ACID ETHYL ESTERS 1 GM CAPSULE PO SCH (09:26)
[2017-06-14] MEDS: VALSARTAN 80 MG TABLET PO SCH (10:47)
--- NOTE | 2017-06-14 13:30 | PDOC CONSULTATION ---
Consultation Consult Date: 06/13/17 Attending physician:: ELKE HOOVER Consult reason:: a fib History of Present Illness Admission Date/PCP: 06/12/17 12:17 TEZ CARLSON MD Patient complains of: Generalized weakness History of Present Illness: MARIO CARLSON is a 81 year old male with a past medical history of atrial fibrillation, COPD, emphysema, insulin-dependent diabetes mellitus, peripheral arterial disease, LA now status post 2 vessel bypass with AICD/pacemaker, and lung cancer with liver metastasis who presented to the emergency today with a complaint of increased dyspnea and weakness resulting in a fall. The patient was seen recently by their primary care provider and started on a prednisone taper and Levaquin for presumed community-acquired pneumonia. He is oxygen dependent at home at 4 L/min. The patient and daughter states that he had increased confusion today described as disorientation with regard to that date and increased forgetfulness. The patient states that he is feeling increased weakness and fatigue and that he fell while getting dressed today. He reports a skin tear to the posterior right hand related to the fall but denies additional injuries. He did not hit his head and denies LOC. The patient's daughter states that the increased confusion and weakness is what prompted them to seek evaluation in the emergency department today. Initial evaluation reveals leukocytosis of 12.7, mildly elevated LFTs, indeterminate troponin, and a chest x-ray demonstrating a consolidative process to the right middle and lower lung underwood with associated pleural effusion worrisome for pneumonia with a pneumonic infiltrate versus recurrent lung mass. He is also noted to be in atrial fibrillation with RVR; heart rate of 120-150 while at rest. He is tachypneic at a rate of 25 but maintaining oxygen saturations on his baseline oxygen requirement. He is referred to the hospitalist service for management of pneumonia and A. fib. This history was reviewed and confirmed. Patient denied any chest pain. He just feels generally weak and tired. Patient claims that his last interrogation of defibrillator was about [address] [place] in [place] had it placed. Past Medical History Cardiac Medical History: Reports: Atrial Fibrillation, Myocardial Infarction - 2005, Hyperlipidema, Hypertension Denies: Coronary Artery Disease Pulmonary Medical History: Reports: Bronchitis, Chronic Obstructive Pulmonary Disease (COPD) - inh, Pneumonia - hx 2008 Denies: Asthma EENT Medical History: Reports: None Neurological Medical History: Reports: None Denies: Seizures Endocrine Medical History: Reports: Diabetes Mellitus Type 2 Denies: Hypothyroidism Renal/ Medical History: Reports: None Malignancy Medical History: Reports: Lung Cancer - Liver metastasis GI Medical History: Reports: None Musculoskeltal Medical History: Reports: Arthritis - mild Skin Medical History: Reports: None Psychiatric Medical History: Denies: Depression, Tobacco Dependency Traumatic Medical History: Reports: None Hematology: Denies: Anemia Infectious Medical History: Reports: None Past Surgical History Past Surgical History: Reports: Carotid Endarterectomy, Coronary Artery Bypass Graft, Pacemaker Social History Information Source: Patient Lives with: Family Smoking Status: Former Smoker Last Time Smoked: 1979 Frequency of Alcohol Use: None Hx Recreational Drug Use: No Drugs: Marijuana Hx Prescription Drug Abuse: No - Advance Directive Resuscitation Status: Full Code Surrogate healthcare decision maker:: Kathryn Carlson is the surrogate decision-maker. Family History Family History: Hypertension Parental Family History Reviewed: Yes Children Family History Reviewed: Yes Sibling(s) Family History Reviewed.: Yes Medication/Allergy Home Medications: Albuterol Sulfate [Proair HFA Inhalation Aerosol 8.5 gm MDI] 1 puff IH PRN PRN 06/12/17 Aspirin [Ecotrin 81 mg EC Tablet] 81 mg PO DAILY 06/12/17 Insulin Glargine,Hum.rec.anlog [Lantus Solostar] 22 unit SQ DAILY 06/12/17 Insulin Lispro [Humalog Kwikpen U-100] 0 units SQ .PERSLIDINGSCLAE 06/12/17 Metoprolol Tartrate [Lopressor 50 mg Tablet] 50 mg PO Q12H 06/12/17 Multivit-Min/FA/Lycopen/Lutein [Centrum Silver Men Tablet] 1 each PO DAILY 06/12 [place]-3 Fatty Acids/Fish Oil [Fish Oil 1,000 mg Capsule] 1 each PO DAILY Rosuvastatin Calcium [Crestor] 40 mg PO QHS 06/12/17 Umeclidinium Brm/Vilanterol Tr [Anoro Ellipta 62.5-25 Mcg INH] 1 puff IH DAILY 06/12/17 Acetaminophen [Tylenol 325 mg Tablet] 650 mg PO Q4HP PRN tablet 06/15/17 Albuterol Sulfate [Proair HFA] 1 - 2 puff IH Q4 PRN #1 inhaler 06/15/17 Aspirin [Aspirin 81 mg Chewable Tablet] 81 mg PO DAILY #0 tab.chew 06/15/17 Atorvastatin Calcium [Lipitor 20 mg Tablet] 20 mg PO QHS #30 tablet 06/15/17 Cefuroxime Axetil [Ceftin 500 mg Tablet] 1 tab PO BID #20 tablet 06/15/17 Diltiazem HCl [Cardizem 30 mg Tablet] 30 mg PO Q6 #120 tablet 06/15/17 Guaifenesin [Mucinex Sr 600 mg Tablet.sa] 600 mg PO Q12 #30 tablet.sa 06/15/17 Levofloxacin [Levaquin 750 mg Tablet] 750 mg PO DAILY #5 tablet 06/15/17 Ranolazine [Ranexa 500 mg Tab.sr] 500 mg PO Q12 #60 tab.sr.12h 06/15/17 Valsartan [Diovan 80 mg Tablet] 80 mg PO DAILY #30 tablet 06/15/17 Allergies/Adverse Reactions: No Known Allergies Allergy (Verified 07/05/14 15:03) Review of Systems Review of Systems: Please see history of present illness and past medical history as wall. Constitutional: No fever or chills reported. Generalized fatigue and tiredness noted. Head : No recent chronic headaches, recent head injury. Eyes: No recent eye pain, diplopia, redness, discharge, acute visual changes. Ears: No recent chronic ear pain, acute hearing loss, ear discharge. Oral cavity: No recent ulcerations, bleeding, oral cavity discomfort. Neck: No recent acute neck pain reported. Hematologic: No recent easy bruising or bleeding or hematologic malignancy reported. Lymphatic: No recent lymphatic malignancy, chronic lymphadenopathy reported yet Cardiovascular system review: See history of present illness. Respiratory system review: No recent chronic cough, hemoptysis, blood clots in the lungs reported. Shortness of breath on exertion. No recent chest pains Gastrointestinal system review: Negative for any recent acute or chronic abdominal pain, hematemesis, melena, recent change in bowel habits. Genitourinary system review: No recent acute or chronic hematuria, flank pain, UTI etc. reported. Skin system review: Negative for any recent abnormal bruising, no rash, no pruritus reported. Neurologic: No prior history of strokes, mini strokes, seizure disorder. Psychologic: No history of major psychosis or major depression reported. Musculoskeletal: Minor aches and pains reported. No acute joint swelling reported. Endocrine: No recent polyuria, polydipsia, recent heat or cold intolerance. Physical Exam Vital Signs: Temp Pulse Resp BP Pulse Ox 97.7 F 99 20 182/84 H 100 06/13/17 16:17 06/13/17 16:17 06/13/17 16:17 06/13/17 16:17 06/13/17 16:17 Intake & Output 06/12/17 06/13/17 06/14/17 06:59 06:59 06:59 Intake Total 2114 237 Output Total 600 600 Balance 1514 -363 Weight 69.1 kg Exam: GENERAL: In no acute distress. Alert and oriented x3. Patient looks debilitated. HEAD: Atraumatic, normocephalic. EYES: Pupils equal round and reactive to light, extraocular movements intact, sclera anicteric, conjunctiva are normal. ENT: TMs normal, nares patent, oropharynx clear without exudates. Moist mucous membranes. No oral ulcerations or bleeding gums noted NECK: supple without lymphadenopathy. Trachea is central. No cervical or axillary lymphadenopathy noted. Carotids are 2+, JVD WNL LUNGS: Respiration seems nonlabored, no significant accessory muscle action noted. Bilateral basal crackles and few scattered wheezes rales or rhonchi noted. No significant dullness noted on percussion. CHEST: Palpation of the chest wall shows no significant chest wall tenderness. No other significant abnormalities noted. 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 ABDOMEN: Soft, no significant tenderness appreciated, normoactive bowel sounds. No guarding, no rebound. No rigidity noted . No masses appreciated. EXTREMITIES: Pedal pulses are 1-2+, no calf tenderness noted. No clubbing or cyanosis.trace pedal edema noted NEUROLOGICAL: Focused neurological exam showed no significant neurologic deficit. Normal speech, no focal weakness appreciated. PSYCH: Normal mood, normal affect. Judgment and insight within normal limits. SKIN: No significant ecchymosis, skin is noted to be warm. MUSCULOSKELETAL EXAM: No significant acute joint swelling noted. Results Laboratory Results: 06/13/17 04:55 06/13/17 04:55 06/13/17 06/13/17 04:55 04:55 WBC 9.6 RBC 3.75 L Hgb 11.4 L Hct 32.1 L MCV 86 MCH 30.3 MCHC 35.5 RDW 16.3 H Plt Count 164 Seg Neutrophils % Not Reportable Lymphocytes % Not Reportable Monocytes % Not Reportable Eosinophils % Not Reportable Basophils % Not Reportable Absolute Neutrophils Not Reportable Absolute Lymphocytes Not Reportable Absolute Monocytes Not Reportable Absolute Eosinophils Not Reportable Absolute Basophils Not Reportable Sodium 136.8 L Potassium 3.8 Chloride 101 Carbon Dioxide 27 Anion Gap 9 BUN 22 H Creatinine 0.73 Est GFR ( Amer) > 60 Est GFR (Non-Af Amer) > 60 Glucose 198 H Calcium 8.8 Total Bilirubin 0.6 AST 50 ALT 60 Alkaline Phosphatase 142 H Total Protein 5.3 L Albumin 3.2 L 06/12/17 06/12/17 06/12/17 15:15 19:00 20:45 Troponin I 0.102 0.144 0.119 06/13/17 14:58 Troponin I 0.052 EKG Comments: Atrial fibrillation with rapid ventricular response and left bundle branch block pattern. Impressions: Head CT 06/12/17 00:00 IMPRESSION: MILD CHRONIC CHANGES OF ATROPHY AND MICROVASCULAR ISCHEMIA. NO ACUTE PROCESS. EVIDENCE OF ACUTE STROKE: NO. Chest X-Ray 06/12/17 11:08 IMPRESSION: Consolidative process in the right mid and lower lung field as noted above with associated pleural effusion. While this may all be related to a pneumonic infiltrate, the possibility of a recurrent mass cannot be excluded. Followup is recommended and if the these changes persist, a chest CT scan may be of value for further evaluation. Other findings as noted above Assessment & Plan - Diagnosis (1) Atrial fibrillation with rapid ventricular response Is this a current diagnosis for this admission?: Yes (2) Elevated troponin I level Is this a current diagnosis for this admission?: Yes (3) Coronary artery disease Qualifiers: Coronary Disease-Associated Artery/Lesion type: unspecified vessel or lesion type Associated angina: angina presence unspecified (4) Diabetes mellitus type II, controlled Qualifiers: Diabetes mellitus complication status: with circulatory complication Diabetes mellitus complication detail: with other circulatory complications 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: with 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 Qualified Code(s) : E11.59 - Type 2 diabetes mellitus with other circulatory complications Is this a current diagnosis for this admission?: Yes (5) Hypertension Qualifiers: Hypertension type: essential hypertension Qualified Code(s): I10 - Essential (primary) hypertension Is this a current diagnosis for this admission?: Yes (6) Left bundle branch block (LBBB) Is this a current diagnosis for this admission?: Yes (7) Presence of combination internal cardiac defibrillator (ICD) and pacemaker Is this a current diagnosis for this admission?: Yes (8) Weakness Is this a current diagnosis for this admission?: Yes (9) Fall Qualifiers: Encounter type: subsequent encounter Qualified Code(s): W19.XXXD - Unspecified fall, subsequent encounter Is this a current diagnosis for this admission?: Yes - Notes Notes: Atrial fibrillation with rapid ventricular response: This was noted on initial EKG. Recommend rate control. Patient would be a suboptimal candidate for chronic anticoagulation, because of history of fall, metastatic cancer etc. Patient is at increased risk of stroke. If any anticoagulation is used would recommend that this be cleared with patient's oncologist. Troponin I elevation: Most likely related to supply demand mismatch. Because of significant comorbid diagnosis, patient would not be a candidate for invasive evaluation in the absence of uncontrolled angina symptoms. Coronary artery disease: Symptomatically stable. Will start patient on Ranexa as this might help maintain Patient sinus rhythm. May actually help improve coronary perfusion. Hypertension: Recommend liberal control in this patient due to history of fall, generalized weakness. History of fall: Patient will benefit from OT PT therapy and fall prevention teaching. Diabetes type 2: Recommend good control but tight control should be avoided. Presence of defibrillator: Will consider interrogating it but this is not an emergency and can be performed by his primary care prorate clerk on discharge. So far I have not seen any evidence of malfunction at this point. Left bundle branch block pattern: Probably related to underlying CAD and possible cardiomyopathy. Will obtain a 2D echo for further evaluation of risk. Overall prognosis is guarded. - Time Time Spent: 30 to 50 Minutes - CODE STATUS was discussed, patient remains full code. Surrogate decision-maker unchanged. Multiple medical problems were addressed. More than 50% of the time spent coordinating care, discussing management plans with involved caregivers. Management plans discussed with involved personnels. Medical decision making was of moderate to high complexity , patient's has multiple comorbidities. Medications reviewed and adjusted accordingly: Yes
--- NOTE | 2017-06-14 13:38 | PDOC PROGRESS REPORT ---
Subjective Progress Note for:: 06/14/17 Subjective:: Patient seems to be doing better with gradual improvement. Pt is denying any chest arm or neck discomfort. Patient denying any PND, orthopnea. Patient denied any sustained palpitations, dizziness, syncope, near syncope. Patient denying any fever chills. Patient denying any other significant discomfort. Patient still is feeling generally very weak. Patient noted to have intermittent bundle branch block pattern and intermittent irregular heartbeats. Frequent ectopy is also noted.. Review of systems: Rest review of systems negative. Medications: Medications have been reviewed. Reason For Visit: PNEUMONIA Physical Exam Vital Signs: Temp Pulse Resp BP Pulse Ox 97.6 F 82 22 H 156/77 H 99 06/14/17 11:42 06/14/17 11:42 06/14/17 11:42 06/14/17 11:42 06/14/17 11:42 Intake & Output 06/13/17 06/14/17 06/15/17 06:59 06:59 06:59 Intake Total 2114 4504 150 Output Total 600 2775 200 Balance 1514 1729 -50 Weight 69.1 kg 68.3 kg Exam: GENERAL: well-nourished and in no acute distress. Alert and oriented x3 HEAD: Atraumatic, normocephalic. EYES: Pupils equal round and reactive to light, extraocular movements intact, sclera anicteric, conjunctiva are normal. ENT: TMs normal, nares patent, oropharynx clear without exudates. Moist mucous membranes. No oral ulcerations or bleeding gums noted NECK: supple without lymphadenopathy. Trachea is central. No cervical or axillary lymphadenopathy noted. Carotids are 2+, JVD WNL LUNGS: Respiration seems nonlabored, no significant accessory muscle action noted. Bilateral fine crackles noted right more than left. Mild scattered wheezing noted. CHEST: Palpation of the chest wall shows no significant chest wall tenderness. No other significant abnormalities noted. 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 ABDOMEN: Soft, no significant tenderness appreciated, normoactive bowel sounds. No guarding, no rebound. No rigidity noted . No masses appreciated. EXTREMITIES: Pedal pulses are 1-2+, no calf tenderness noted. No clubbing or cyanosis.trace to 1+ pedal edema noted NEUROLOGICAL: Focused neurological exam showed no significant neurologic deficit. Normal speech, no focal weakness appreciated. PSYCH: Normal mood, normal affect. Judgment and insight within normal limits. SKIN: No significant ecchymosis, skin is noted to be warm. MUSCULOSKELETAL EXAM: No significant acute joint swelling noted. Results Laboratory Results: 06/14/17 05:29 06/14/17 05:29 06/14/17 06/14/17 05:29 05:29 WBC 11.0 H RBC 4.10 L Hgb 12.3 L Hct 36.0 L MCV 88 MCH 29.9 MCHC 34.1 RDW 16.2 H Plt Count 169 Seg Neutrophils % Not Reportable Lymphocytes % Not Reportable Monocytes % Not Reportable Eosinophils % Not Reportable Basophils % Not Reportable Absolute Neutrophils Not Reportable Absolute Lymphocytes Not Reportable Absolute Monocytes Not Reportable Absolute Eosinophils Not Reportable Absolute Basophils Not Reportable Sodium 138.2 Potassium 4.5 Chloride 96 L Carbon Dioxide 32 H Anion Gap 10 BUN 22 H Creatinine 0.69 Est GFR ( Amer) > 60 Est GFR (Non-Af Amer) > 60 Glucose 336 H Calcium 9.2 06/12/17 15:26 Clean Catch Midstream Urine Culture - Final Mixed Urogenital Liane 06/12/17 06/12/17 06/12/17 15:15 19:00 20:45 Troponin I 0.102 0.144 0.119 06/13/17 14:58 Troponin I 0.052 EKG Comments: Telemetry strips reviewed showed predominantly sinus rhythm with frequent APCs. Occasional intermittent atrial fibrillation noted. Impressions: Head CT 06/12/17 00:00 IMPRESSION: MILD CHRONIC CHANGES OF ATROPHY AND MICROVASCULAR ISCHEMIA. NO ACUTE PROCESS. EVIDENCE OF ACUTE STROKE: NO. Chest X-Ray 06/12/17 11:08 IMPRESSION: Consolidative process in the right mid and lower lung field as noted above with associated pleural effusion. While this may all be related to a pneumonic infiltrate, the possibility of a recurrent mass cannot be excluded. Followup is recommended and if the these changes persist, a chest CT scan may be of value for further evaluation. Other findings as noted above Assessment & Plan - Diagnosis (1) Atrial fibrillation with rapid ventricular response Is this a current diagnosis for this admission?: Yes (2) Elevated troponin I level Is this a current diagnosis for this admission?: Yes (3) Coronary artery disease Qualifiers: Coronary Disease-Associated Artery/Lesion type: unspecified vessel or lesion type Associated angina: angina presence unspecified (4) Diabetes mellitus type II, controlled Qualifiers: Diabetes mellitus complication status: with circulatory complication Diabetes mellitus complication detail: with other circulatory complications 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 Qualified Code(s) : E11.59 - Type 2 diabetes mellitus with other circulatory complications Is this a current diagnosis for this admission?: Yes (5) Hypertension Qualifiers: Hypertension type: essential hypertension Qualified Code(s): I10 - Essential (primary) hypertension Is this a current diagnosis for this admission?: Yes (6) Left bundle branch block (LBBB) Is this a current diagnosis for this admission?: Yes (7) Presence of combination internal cardiac defibrillator (ICD) and pacemaker Is this a current diagnosis for this admission?: Yes (8) Weakness Is this a current diagnosis for this admission?: Yes (9) Fall Qualifiers: Encounter type: subsequent encounter Qualified Code(s): W19.XXXD - Unspecified fall, subsequent encounter Is this a current diagnosis for this admission?: Yes - Notes Notes: Today started patient on Ranexa. Feel that it may be worthwhile to interrogate the defibrillator while he is in the hospital. Still do not feel patient would be a good candidate for chronic anticoagulation at this point. But may need to be decided by his primary care social services and oncologist. Atrial fibrillation with rapid ventricular response: This was noted on initial EKG. Recommend rate control. Patient would be a suboptimal candidate for chronic anticoagulation, because of history of fall, metastatic cancer etc. Patient is at increased risk of stroke. If any anticoagulation is used would recommend that this be cleared with patient's oncologist. Troponin I elevation: Most likely related to supply demand mismatch. Because of significant comorbid diagnosis, patient would not be a candidate for invasive evaluation in the absence of uncontrolled angina symptoms. Coronary artery disease: Symptomatically stable. Will start patient on Ranexa as this might help maintain Patient sinus rhythm. May actually help improve coronary perfusion. Hypertension: Recommend liberal control in this patient due to history of fall, generalized weakness. History of fall: Patient will benefit from OT PT therapy and fall prevention teaching. Diabetes type 2: Recommend good control but tight control should be avoided. Presence of defibrillator: Will consider interrogating it but this is not an emergency and can be performed by his primary care social services on discharge. So far I have not seen any evidence of malfunction at this point. Left bundle branch block pattern: Probably related to underlying CAD and possible cardiomyopathy. Will obtain a 2D echo for further evaluation of risk. Overall prognosis is guarded. - Time Time with patient: Greater than 35 minutes - CODE STATUS was discussed, patient remains full code. Surrogate decision-maker patient's daughter. Multiple medical problems were addressed. More than 50% of the time spent coordinating care, discussing management plans with involved caregivers. Management plans discussed with involved personnels. Medical decision making was of moderate to high complexity, patient's has multiple comorbidities. Medications reviewed and adjusted accordingly: Yes
--- NOTE | 2017-06-14 14:04 | PDOC PROGRESS REPORT ---
Subjective Progress Note for:: 06/14/17 Subjective:: The patient is a 81-year-old male with a past medical history of atrial fibrillation, COPD, emphysema, insulin-dependent diabetes mellitus, peripheral arterial disease, [place] status post 2 vessel bypass with AICD/pacemaker, and lung cancer with liver metastasis who was admitted on 06/12/17 for acute on chronic respiratory failure with hypoxia secondary to pneumonia in the presence of advanced lung cancer as well as atrial fibrillation with RVR. The patient is seen on morning rounds. He is found sitting up to the edge of his bed preparing to eat breakfast. He is breathing comfortably on his baseline oxygen requirement of 4 L/min via nasal cannula. He denies complaints at this time and states that he is hopeful to be discharged home in the near future. He denies fever, chills, chest pain, palpitations, dyspnea, orthopnea, cough, abdominal pain, nausea vomiting and diarrhea. He has no new questions or concerns at this time. Reason For Visit: PNEUMONIA Physical Exam Vital Signs: Temp Pulse Resp BP Pulse Ox 97.6 F 82 22 H 156/77 H 99 06/14/17 11:42 06/14/17 11:42 06/14/17 11:42 06/14/17 11:42 06/14/17 11:42 Intake & Output 06/13/17 06/14/17 06/15/17 06:59 06:59 06:59 Intake Total 2114 4504 150 Output Total 600 2775 200 Balance 1514 1729 -50 Weight 69.1 kg 68.3 kg General appearance: PRESENT: no acute distress, well-developed, well-nourished Head exam: PRESENT: atraumatic, normocephalic Eye exam: PRESENT: conjunctiva pink, EOMI, PERRLA. ABSENT: scleral icterus Ear exam: PRESENT: normal external ear exam Mouth exam: PRESENT: moist, tongue midline Neck exam: ABSENT: carotid bruit, JVD, lymphadenopathy, thyromegaly Respiratory exam: PRESENT: crackles - Fine crackles bibasilar, decreased breath sounds - Bibasilar, symmetrical, unlabored, other - Supplemental oxygen at 4 L/ min. ABSENT: rales, rhonchi, tachypnea, wheezes Cardiovascular exam: PRESENT: RRR, +S1, +S2, systolic murmur. ABSENT: diastolic murmur, rubs Pulses: PRESENT: normal dorsalis pedis pul Vascular exam: PRESENT: normal capillary refill GI/Abdominal exam: PRESENT: normal bowel sounds, soft. ABSENT: distended, guarding, mass, organolmegaly, rebound, tenderness Rectal exam: PRESENT: deferred Extremities exam: PRESENT: full ROM. ABSENT: calf tenderness, clubbing, pedal edema Neurological exam: PRESENT: alert, awake, oriented to person, oriented to place , oriented to time, oriented to situation, CN II-XII grossly intact. ABSENT: motor sensory deficit Psychiatric exam: PRESENT: appropriate affect, normal mood. ABSENT: homicidal ideation, suicidal ideation Skin exam: PRESENT: dry, intact, warm. ABSENT: cyanosis, rash Results Laboratory Results: 06/14/17 05:29 06/14/17 05:29 06/14/17 06/14/17 05:29 05:29 WBC 11.0 H RBC 4.10 L Hgb 12.3 L Hct 36.0 L MCV 88 MCH 29.9 MCHC 34.1 RDW 16.2 H Plt Count 169 Seg Neutrophils % Not Reportable Lymphocytes % Not Reportable Monocytes % Not Reportable Eosinophils % Not Reportable Basophils % Not Reportable Absolute Neutrophils Not Reportable Absolute Lymphocytes Not Reportable Absolute Monocytes Not Reportable Absolute Eosinophils Not Reportable Absolute Basophils Not Reportable Sodium 138.2 Potassium 4.5 Chloride 96 L Carbon Dioxide 32 H Anion Gap 10 BUN 22 H Creatinine 0.69 Est GFR ( Amer) > 60 Est GFR (Non-Af Amer) > 60 Glucose 336 H Calcium 9.2 06/12/17 15:26 Clean Catch Midstream Urine Culture - Final Mixed Urogenital Liane 06/12/17 06/12/17 06/12/17 15:15 19:00 20:45 Troponin I 0.102 0.144 0.119 06/13/17 14:58 Troponin I 0.052 Impressions: Head CT 06/12/17 00:00 IMPRESSION: MILD CHRONIC CHANGES OF ATROPHY AND MICROVASCULAR ISCHEMIA. NO ACUTE PROCESS. EVIDENCE OF ACUTE STROKE: NO. Chest X-Ray 06/12/17 11:08 IMPRESSION: Consolidative process in the right mid and lower lung field as noted above with associated pleural effusion. While this may all be related to a pneumonic infiltrate, the possibility of a recurrent mass cannot be excluded. Followup is recommended and if the these changes persist, a chest CT scan may be of value for further evaluation. Other findings as noted above Assessment & Plan - Diagnosis (1) Pneumonia Qualifiers: Pneumonia type: due to unspecified organism Laterality: right Lung location: lower lobe of lung Qualified Code(s): J18.1 - Lobar pneumonia, unspecified organism Is this a current diagnosis for this admission?: Yes Plan: Improved; the patient denies dyspnea and cough. He is now on his baseline home O2 requirement of 4 L/min Chest x-ray demonstrates consolidation of the right mid and lower lung underwood with associated pleural effusion concerning for pneumonia versus lung mass. Blood cultures: No growth at 48 hours The patient is admitted to [facility] on continuous cardiac telemetry. Supplemental oxygen as required to maintain oxygen saturations greater than 88%. He is empirically placed on cefepime and Levaquin for pseudomonal and MSSA coverage as wound and bronchial washing cultures have been positive for both of these organisms. Will narrow antibiotics as cultures result. We will begin weaning steroids today. He is provided scheduled duo nebs and as needed Xopenex breathing treatments. He will be placed on Mucinex twice daily. Incentive spirometry to bedside. Patient is encouraged to get out of bed with assistance for meals. (2) Atrial fibrillation with rapid ventricular response Is this a current diagnosis for this admission?: Yes Plan: The patient converted to normal sinus rhythm overnight. A. fib with RVR is likely a result of missed medications in the setting of pneumonia. Troponin elevated to 0.144 and now trending down. 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 We will continue to monitor. He is admitted to the [facility] on continuous cardiac telemetry. Continue diltiazem 30 mg p.o. every 6 hours Continue metoprolol 50 mg twice daily. Continue daily aspirin. We will consult cardiology; appreciate their evaluation recommendations. The patient is not a candidate for chronic anticoagulation secondary to metastatic lung cancer and history of frequent falls. (3) Diabetes mellitus type II, controlled Qualifiers: Diabetes mellitus complication status: with circulatory complication Diabetes mellitus complication detail: with other circulatory complications Diabetes mellitus prison insulin use: with prison use Qualified Code(s) : E11.59 - Type 2 diabetes mellitus with other circulatory complications Is this a current diagnosis for this admission?: Yes Plan: The patient is placed on a cardiac and consistent carb diet. Will continue his home dose Levemir of 22 units daily. Accu-Cheks before meals and at bedtime with Humalog for sliding scale coverage. (4) Hyperlipidemia Qualifiers: Hyperlipidemia type: unspecified Qualified Code(s): E78.5 - Hyperlipidemia , unspecified Is this a current diagnosis for this admission?: Yes Plan: The patient is placed on Lipitor 20 mg nightly. Cardiac diet. (5) Sepsis Qualifiers: Sepsis type: sepsis due to unspecified organism Qualified Code(s): A41.9 - Sepsis, unspecified organism Is this a current diagnosis for this admission?: Yes Plan: Resolved; WBCs are trending down to 11, he is afebrile, normotensive, appropriate heart rate, and on his baseline oxygen requirement. The patient presented with sepsis due to pneumonia present on admission evidenced by increased confusion, WBCs of 12.7, tachycardia with heart rate of 120-150, tachypnea with respiratory rate of 25, hypoxia with an oxygen saturation of 87% while on supplemental oxygen, and hypotension noted to be 89/ 43. Blood cultures: No growth at 48 hours. Urine culture: No growth (final) The patient is empirically placed on cefepime and Levaquin as he does have a history of MSSA and pseudomonal infections; will narrow as cultures finalize. (6) Coronary artery disease Is this a current diagnosis for this admission?: Yes Plan: Continue daily statin and aspirin therapy. The patient has been placed on Ranexa by cardiology. Cardiology has been consulted; appreciate their evaluation recommendations. Remaining plan as above. (7) Elevated troponin I level Is this a current diagnosis for this admission?: Yes Plan: Likely secondary to demand ischemia as a result of pneumonia and A. fib with RVR in the presence of lung cancer. Troponins have trended down. Cardiology has been consulted. Plan as above. (8) Hypertension Qualifiers: Hypertension type: essential hypertension Qualified Code(s): I10 - Essential (primary) hypertension Is this a current diagnosis for this admission?: Yes Plan: Patient is currently on diltiazem 30 mg p.o. every 6 hours, metoprolol 50 mg p.o. every 12 hours, valsartan 80 mg p.o. daily with metoprolol 5 mg IV every 6 hours as needed. Recommending liberal control in this frail elderly patient with a history of frequent falls. Cardiology has been consulted; appreciate their evaluation recommendations. (9) Left bundle branch block (LBBB) Is this a current diagnosis for this admission?: Yes Plan: Per cardiology this is probably related to underlying coronary artery disease and possible cardiomyopathy. Echocardiogram is pending. Consider pacemaker interrogation. Cardiology has been consulted. (10) History of fall Is this a current diagnosis for this admission?: Yes Plan: PT/OT to evaluate and treat per protocols. (11) Full code status Is this a current diagnosis for this admission?: Yes Plan: We will place a palliative care consultation. - Time Time Spent with patient: 25-34 minutes Medications reviewed and adjusted accordingly: Yes
[2017-06-14] MEDS: LEVOFLOXACIN 750 MG/D5W RTU 750 MG/150 ML RTUPB IV SCH (17:50)
[2017-06-14] MEDS: RANOLAZINE 500 MG TAB.SR.12H PO SCH (17:53)
[2017-06-14] MEDS ORDERED: METHYLPREDNISOLONE INJ 40 MG/1 ML SDV IV SCH (22:00)
[2017-06-14] MEDS: ATORVASTATIN CALCIUM 20 MG TABLET PO SCH (22:43)
[2017-06-15] MEDS: DILTIAZEM HCL 30 MG TABLET PO SCH ×3 (00:43→12:45)
[2017-06-15] MEDS: METOPROLOL TARTRATE 50 MG TABLET PO SCH (05:48)
[2017-06-15] MEDS: RANOLAZINE 500 MG TAB.SR.12H PO SCH (05:48)
[2017-06-15] MEDS: HEPARIN SOD (PORCINE) 5,000 UNIT/ML 1 ML SYRINGE SUBCUT SCH (05:49)
[2017-06-15 06:44] LABS: HEMATOCRIT 35.2 % (37.9-51.0); HEMOGLOBIN 12.1 g/dL (13.5-17.0); MEAN CORPUSCULAR HEMOGLOBIN 29.6 pg (27.0-33.4); MEAN CORPUSCULAR HGB CONC 34.3 g/dL (32.0-36.0); MEAN CORPUSCULAR VOLUME 86 fl (80-97); PLATELET COUNT 183 10^3/uL (150-450); RED BLOOD COUNT 4.08 10^6/uL (4.35-5.55); RED CELL DISTRIBUTION WIDTH 16.3 % (11.5-14.0); WHITE BLOOD COUNT 10.8 10^3/uL (4.0-10.5)
[2017-06-15 06:51] LABS: ANION GAP 7 (5-19); BLOOD UREA NITROGEN 23 mg/dL (7-20); CALCIUM 8.4 mg/dL (8.4-10.2); CARBON DIOXIDE 33 mmol/L (22-30); CHLORIDE 99 mmol/L (98-107); GLUCOSE 150 mg/dL (75-110); POTASSIUM 3.3 mmol/L (3.6-5.0); SODIUM 139.1 mmol/L (137-145)
[2017-06-15 07:39] LABS: ABSOLUTE LYMPHOCYTES# (MANUAL) 0.2 10^3/uL (0.5-4.7); ABSOLUTE NEUTROPHILS# (MANUAL) 10.6 10^3/uL (1.7-8.2); BASOPHILS % (MANUAL) 0 % (0-2); EOSINOPHILS % (MANUAL) 0 % (0-6); LYMPHOCYTES % (MANUAL) 2 % (13-45); MONOCYTES % (MANUAL) 0 % (3-13); POLYCHROMASIA SLIGHT; SEGMENTED NEUTROPHILS % (MAN) 98 % (42-78); TOTAL CELLS COUNTED 100
[2017-06-15 07:40] LABS: ANISOCYTOSIS 1+; HYPOCHROMASIA SLIGHT; PLATELET COMMENT ADEQUATE; TOXIC GRANULATION 1+
[2017-06-15] MEDS: IPRATROPIUM/ALBUTEROL 0.5-2.5 MG/3 ML AMPUL NEB SCH (08:12)
[2017-06-15] MEDS ORDERED: POTASSIUM CHLORIDE 10 MEQ TABLET.SA PO ONE (08:45)
--- NOTE | 2017-06-15 09:17 | EKG REPORT ---
SEVERITY:- ABNORMAL ECG - SINUS RHYTHM VENTRICULAR PREMATURE COMPLEX NONSPECIFIC INTRAVENTRICULAR CONDUCTION DELAY CONSIDER ANTEROSEPTAL INFARCT : Confirmed by: Jp Porter 15-Jun-2017 09:17:07
[2017-06-15] MEDS ORDERED: PREDNISONE 20 MG TABLET PO SCH (10:00)
[2017-06-15] MEDS: OMEGA-3 ACID ETHYL ESTERS 1 GM CAPSULE PO SCH (10:52)
[2017-06-15] MEDS: VALSARTAN 80 MG TABLET PO SCH (10:53)
[2017-06-15] MEDS: GUAIFENESIN 600 MG TABLET.SA PO SCH (10:53)
[2017-06-15] MEDS: FAMOTIDINE 20 MG TABLET PO SCH (10:53)
[2017-06-15] MEDS: MULTIVITAMIN TABLET PO SCH (10:54)
[2017-06-15] MEDS: INSULIN GLARGINE,HUM.REC.ANLOG 300 UNIT/3 ML INSULN.PEN SUBCUT SCH (10:54)
[2017-06-15] MEDS: INSULIN LISPRO 100 UNIT/ML 3 ML VIAL SUBCUT PRN ×2 (10:54→12:52)
[2017-06-15] MEDS: ASPIRIN 81 MG TABLET, CHEWABLE PO SCH (10:54)
[2017-06-15] MEDS: CEFEPIME HCL 2 GM in DEXTROSE 5%-WATER 100 ML IV SCH (10:55)
--- NOTE | 2017-06-15 13:03 | XCELERA REPORT ---
[address] [address] Transthoracic Echocardiogram Report Name: MARIO CARLSON Age: 81 yrs Gender: Male : 1935 Patient Status: Inpatient Patient Location: [address] [place] [address] Study Date: 06/15/2017 10:03 AM Height: 70 in Weight: 150 lb BSA: 1.8 m2 Procedure: A complete two-dimensional transthoracic echocardiogram was performed (2D, M-mode, spectral and color flow Doppler). The study was technically adequate with some images being suboptimal in quality. Reason For Study: Atrial fibrillation, CAD Ordering Physician: JP ALVAREZ Performed By: Omayra Tyler Interpretation Summary The left ventricular ejection fraction is normal. Doppler measurements suggest pseudonormalized left ventricular relaxation, which is associated with grade II/IV or mild to moderate diastolic dysfunction There is basal inferior wall akinesis There is moderate concentric left ventricular hypertrophy. The left ventricle is grossly normal size. The right ventricle is mild to moderately dilated. The left atrial size is normal. The right atrium is mildly dilated. There is a mild amount of mitral regurgitation There is no mitral valve stenosis. There is mild aortic stenosis, based on reduced excursion of the valve. No aortic regurgitation is present. There is a mild amount of tricuspid regurgitation There is mild to moderate pulmonary hypertension by echo Right ventricular systolic pressure is estimated to be elevated at 40- 50mmHg. The aortic root is not well visualized but is probably normal size. The inferior vena cava appeared normal and decreased > 50% with respiration (RAP 5-10 mmHg) Minimal pericardial effusion. MMode/2D Measurements & Calculations RVDd: 4.1 cm LVIDd: 3.6 cm FS: 33.7 % Ao root diam: 2.9 cm IVSd: 1.3 cm LVIDs: 2.4 cm EDV(Teich): 53.2 ml LVPWd: 1.4 cm ESV(Teich): 19.4 ml Ao root area: 6.6 cm2 EF(Teich): 63.5 % Doppler Measurements & Calculations MV E max xochitl: MV dec slope: Ao V2 max: LV V1 max P.5 cm/sec 150.1 cm/sec 3.0 mmHg MV A max xochitl: 388.9 cm/sec2 Ao max PG: LV V1 max: 118.9 cm/sec MV dec time: 9.0 mmHg 86.8 cm/sec MV E/A: 0.78 0.24 sec PA V2 max: TR max xochitl: 129.3 cm/sec 312.2 cm/sec PA max P.7 mmHg TR max P.0 mmHg Left Ventricle The left ventricle is grossly normal size. There is moderate concentric left ventricular hypertrophy. The left ventricular ejection fraction is normal. Doppler measurements suggest pseudonormalized left ventricular relaxation, which is associated with grade II/IV or mild to moderate diastolic dysfunction. There is basal inferior wall akinesis. Right Ventricle The right ventricle is mild to moderately dilated. There is normal right ventricular wall thickness. The right ventricular systolic function is borderline reduced. Atria The right atrium is mildly dilated. The left atrial size is normal. Interarterial septum not well visualized and not well dopplered. Cannot comment on ASD/PFO presence. Mitral Valve The mitral valve is grossly normal. There is no mitral valve stenosis. There is a mild amount of mitral regurgitation. Aortic Valve The aortic valve is moderately calcified. There is mild aortic stenosis. No aortic regurgitation is present. Tricuspid Valve The tricuspid valve is not well visualized secondary to technical limitations. There is no tricuspid stenosis. There is a mild amount of tricuspid regurgitation. There is mild to moderate pulmonary hypertension by echo. Right ventricular systolic pressure is estimated to be elevated at 40-50mmHg. Pulmonic Valve The pulmonic valve is not well visualized. Great Vessels The aortic root is not well visualized but is probably normal size. The inferior vena cava appeared normal and decreased > 50% with respiration (RAP 5-10 mmHg). Effusions Minimal pericardial effusion. : JP ALVAREZ > Jp Alvarez
[2017-06-15 13:10] VITALS: BP 150/62
--- NOTE | 2017-06-15 15:26 | PDOC DISCHARGE SUMMARY ---
General - Admit/Disc Date/PCP Admission Date/Primary Care Provider: 06/12/17 12:17 TEZ CARLSON MD Discharge Date: 06/15/17 - Discharge Diagnosis (1) Pneumonia Is this a current diagnosis for this admission?: Yes (2) Atrial fibrillation with rapid ventricular response Is this a current diagnosis for this admission?: Yes (3) Diabetes mellitus type II, controlled Is this a current diagnosis for this admission?: Yes (4) Hyperlipidemia Is this a current diagnosis for this admission?: Yes (5) Sepsis Is this a current diagnosis for this admission?: Yes (6) Coronary artery disease Is this a current diagnosis for this admission?: Yes (7) Elevated troponin I level Is this a current diagnosis for this admission?: Yes (8) Hypertension Is this a current diagnosis for this admission?: Yes (9) Left bundle branch block (LBBB) Is this a current diagnosis for this admission?: Yes (10) History of fall Is this a current diagnosis for this admission?: Yes (11) Full code status Is this a current diagnosis for this admission?: Yes - Additional Information Resuscitation Status: Full Code Discharge Diet: Cardiac, Diabetic Discharge Activity: Activity As Tolerated, Balance Activity w/Rest Prescriptions: Albuterol Sulfate [Proair HFA] 1 - 2 puff IH Q4 PRN #1 inhaler PRN Reason: Shortness Of Breath Atorvastatin Calcium [Lipitor 20 mg Tablet] 20 mg PO QHS #30 tablet Cefuroxime Axetil [Ceftin 500 mg Tablet] 1 tab PO BID #20 tablet Diltiazem HCl [Cardizem 30 mg Tablet] 30 mg PO Q6 #120 tablet Guaifenesin [Mucinex Sr 600 mg Tablet.sa] 600 mg PO Q12 #30 tablet.sa Levofloxacin [Levaquin 750 mg Tablet] 750 mg PO DAILY #5 tablet Ranolazine [Ranexa 500 mg Tab.sr] 500 mg PO Q12 #60 tab.sr.12h Valsartan [Diovan 80 mg Tablet] 80 mg PO DAILY #30 tablet Home Medications: Albuterol Sulfate [Proair HFA Inhalation Aerosol 8.5 gm MDI] 1 puff IH PRN PRN 06/12/17 Aspirin [Ecotrin 81 mg EC Tablet] 81 mg PO DAILY 06/12/17 Insulin Glargine,Hum.rec.anlog [Lantus Solostar] 22 unit SQ DAILY 06/12/17 Insulin Lispro [Humalog Kwikpen U-100] 0 units SQ .PERSLIDINGSCLAE 06/12/17 Metoprolol Tartrate [Lopressor 50 mg Tablet] 50 mg PO Q12H 06/12/17 Multivit-Min/FA/Lycopen/Lutein [Centrum Silver Men Tablet] 1 each PO DAILY 06/12 [place]-3 Fatty Acids/Fish Oil [Fish Oil 1,000 mg Capsule] 1 each PO DAILY Rosuvastatin Calcium [Crestor] 40 mg PO QHS 06/12/17 Umeclidinium Brm/Vilanterol Tr [Anoro Ellipta 62.5-25 Mcg INH] 1 puff IH DAILY 06/12/17 Acetaminophen [Tylenol 325 mg Tablet] 650 mg PO Q4HP PRN tablet 06/15/17 Albuterol Sulfate [Proair HFA] 1 - 2 puff IH Q4 PRN #1 inhaler 06/15/17 Aspirin [Aspirin 81 mg Chewable Tablet] 81 mg PO DAILY #0 tab.chew 06/15/17 Atorvastatin Calcium [Lipitor 20 mg Tablet] 20 mg PO QHS #30 tablet 06/15/17 Cefuroxime Axetil [Ceftin 500 mg Tablet] 1 tab PO BID #20 tablet 06/15/17 Diltiazem HCl [Cardizem 30 mg Tablet] 30 mg PO Q6 #120 tablet 06/15/17 Guaifenesin [Mucinex Sr 600 mg Tablet.sa] 600 mg PO Q12 #30 tablet.sa 06/15/17 Levofloxacin [Levaquin 750 mg Tablet] 750 mg PO DAILY #5 tablet 06/15/17 Ranolazine [Ranexa 500 mg Tab.sr] 500 mg PO Q12 #60 tab.sr.12h 06/15/17 Valsartan [Diovan 80 mg Tablet] 80 mg PO DAILY #30 tablet 06/15/17 History of Present Illness History of Present Illness: MARIO CARLSON is a 81 year old male with a past medical history of atrial fibrillation, COPD, emphysema, insulin-dependent diabetes mellitus, peripheral arterial disease, [place] now status post 2 vessel bypass with AICD/pacemaker, and lung cancer with liver metastasis who presented to the emergency today with a complaint of increased dyspnea and weakness resulting in a fall. The patient was seen recently by their primary care provider and started on a prednisone taper and Levaquin for presumed community-acquired pneumonia. He is oxygen dependent at home at 4 L/min. The patient and daughter states that he had increased confusion today described as disorientation with regard to that date and increased forgetfulness. The patient states that he is feeling increased weakness and fatigue and that he fell while getting dressed today. He reports a skin tear to the posterior right hand related to the fall but denies additional injuries. He did not hit his head and denies LOC. The patient's daughter states that the increased confusion and weakness is what prompted them to seek evaluation in the emergency department today. Initial evaluation reveals leukocytosis of 12.7, mildly elevated LFTs, indeterminate troponin, and a chest x-ray demonstrating a consolidative process to the right middle and lower lung underwood with associated pleural effusion worrisome for pneumonia with a pneumonic infiltrate versus recurrent lung mass. He is also noted to be in atrial fibrillation with RVR; heart rate of 120-150 while at rest. He is tachypneic at a rate of 25 but maintaining oxygen saturations on his baseline oxygen requirement. He is referred to the hospitalist service for management of pneumonia and A. fib. Hospital Course Hospital Course: The patient was admitted on 06/12/17 for right middle and lower lobe pneumonia in the presence of established lung cancer with liver metastasis and atrial fibrillation with RVR. He was admitted to the IMCU unit on continuous cardiac telemetry. He was initially placed on IV diltiazem and subsequently converted to a normal sinus rhythm. He was transitioned to p.o. diltiazem 30 mg p.o. every 6 hours. Serial troponins were trended with elevation to 0.144. The patient was noted to throw frequent PVCs and his pacemaker/AICD admitted an alarm sound. Cardiology was consulted and interrogated his pacemaker. No abnormal findings were present; the alarm is reportedly due to attempts to sync . An echocardiogram was obtained demonstrating mild to moderate diastolic dysfunction with a preserved ejection fraction. The patient's cardiac medications were optimized per cardiology recommendations. The patient denied chest pain or palpitations throughout his admission. He was initially placed on cefepime and Levaquin for coverage of MSSA and pseudomonal infections based on review of previous culture results. His blood cultures remain negative at 72 hours. Urine culture showed only mixed urogenital sherrill. He was transitioned to p.o. Ceftin and Levaquin at discharge. The patient has a steroid taper prescription at home it is appropriate for him to continue upon discharge. On day of discharge, the patient is in stable condition. He is maintaining his oxygen saturations while ambulatory on his baseline home O2 requirement. He is provided prescriptions for a pro-air inhaler, aspirin, atorvastatin, Ceftin, Cardizem, Mucinex, Levaquin, and Ranexa, and valsartan. He is recommended to follow-up with his primary care provider within 1 week and oncologist as scheduled. Physical Exam Vital Signs: Temp Pulse Resp BP Pulse Ox 97.9 F 86 16 150/62 H 98 06/15/17 13:06 06/15/17 13:06 06/15/17 13:06 06/15/17 13:06 06/15/17 13:06 Intake & Output 06/14/17 06/15/17 06/16/17 06:59 06:59 06:59 Intake Total 4504 3120 Output Total 2775 2350 Balance 1729 770 Weight 68.3 kg 68 kg General appearance: PRESENT: no acute distress, thin, well-developed, well- nourished Head exam: PRESENT: atraumatic, normocephalic Eye exam: PRESENT: conjunctiva pink, EOMI, PERRLA. ABSENT: scleral icterus Ear exam: PRESENT: normal external ear exam Mouth exam: PRESENT: moist, tongue midline Neck exam: ABSENT: carotid bruit, JVD, lymphadenopathy, thyromegaly Respiratory exam: PRESENT: clear to auscultation saritha, symmetrical, unlabored. ABSENT: rales, rhonchi, wheezes Cardiovascular exam: PRESENT: RRR, +S1, +S2, systolic murmur. ABSENT: diastolic murmur, rubs Pulses: PRESENT: normal dorsalis pedis pul Vascular exam: PRESENT: normal capillary refill GI/Abdominal exam: PRESENT: normal bowel sounds, soft. ABSENT: distended, guarding, mass, organolmegaly, rebound, tenderness Rectal exam: PRESENT: deferred Extremities exam: PRESENT: full ROM. ABSENT: calf tenderness, clubbing, pedal edema Neurological exam: PRESENT: alert, awake, oriented to person, oriented to place , oriented to time, oriented to situation, CN II-XII grossly intact. ABSENT: motor sensory deficit Psychiatric exam: PRESENT: appropriate affect, normal mood. ABSENT: homicidal ideation, suicidal ideation Skin exam: PRESENT: dry, intact, warm. ABSENT: cyanosis, rash Results Laboratory Results: 06/15/17 06:00 06/15/17 06:00 06/15/17 06/15/17 06:00 06:00 WBC 10.8 H RBC 4.08 L Hgb 12.1 L Hct 35.2 L MCV 86 MCH 29.6 MCHC 34.3 RDW 16.3 H Plt Count 183 Seg Neutrophils % Not Reportable Lymphocytes % Not Reportable Monocytes % Not Reportable Eosinophils % Not Reportable Basophils % Not Reportable Absolute Neutrophils Not Reportable Absolute Lymphocytes Not Reportable Absolute Monocytes Not Reportable Absolute Eosinophils Not Reportable Absolute Basophils Not Reportable Sodium 139.1 Potassium 3.3 L Chloride 99 Carbon Dioxide 33 H Anion Gap 7 BUN 23 H Creatinine 0.71 Est GFR ( Amer) > 60 Est GFR (Non-Af Amer) > 60 Glucose 150 H Calcium 8.4 06/12/17 06/12/17 06/12/17 15:15 19:00 20:45 Troponin I 0.102 0.144 0.119 06/13/17 14:58 Troponin I 0.052 Impressions: Head CT 06/12/17 00:00 IMPRESSION: MILD CHRONIC CHANGES OF ATROPHY AND MICROVASCULAR ISCHEMIA. NO ACUTE PROCESS. EVIDENCE OF ACUTE STROKE: NO. Chest X-Ray 06/12/17 11:08 IMPRESSION: Consolidative process in the right mid and lower lung field as noted above with associated pleural effusion. While this may all be related to a pneumonic infiltrate, the possibility of a recurrent mass cannot be excluded. Followup is recommended and if the these changes persist, a chest CT scan may be of value for further evaluation. Other findings as noted above Qualifiers - * PATEINT BEING DISCHARGED WITH ANY OF THE FOLLOWING DIAGNOSIS?: Heart Failure HF Pt being discharged on ACEI for LVEF less than 40%?: No Reason(s) for not prescribing ACEI:: Not indicated HF Pt being discharged on ARBS for LVEF less than 40%?: No Reason(s) for not prescribing ARBS:: Not indicated HF Pt with Afib discharged with Warfarin?: No Reason(s) for not prescribing Warfarin:: Medical Contraindication HF Pt discharged on evidence-based Beta Kobe:: Yes
[2017-06-15] MEDS ORDERED: LEVOFLOXACIN 750 MG TABLET PO SCH (18:00)
--- NOTE | 2017-06-15 20:32 | PDOC PROGRESS REPORT ---
Subjective Progress Note for:: 06/15/17 Subjective:: Patient's defibrillator was interrogated yesterday and was noted to be functioning adequately. Patient had no recent defibrillator discharges. Patient seems to be doing better with gradual improvement. Pt is denying any chest arm or neck discomfort. Patient denying any PND, orthopnea. Patient denied any sustained palpitations, dizziness, syncope, near syncope. Patient denying any fever chills. Patient denying any other significant discomfort. Patient noted to have intermittent bundle branch block pattern. Frequent ectopy is also noted.. Review of systems: Rest review of systems negative. Medications: Medications have been reviewed. Reason For Visit: PNEUMONIA Physical Exam Vital Signs: Temp Pulse Resp BP Pulse Ox 97.9 F 86 16 150/62 H 98 06/15/17 13:06 06/15/17 13:06 06/15/17 13:06 06/15/17 13:06 06/15/17 13:06 Intake & Output 06/14/17 06/15/17 06/16/17 06:59 06:59 06:59 Intake Total 4504 3120 Output Total 2775 2350 Balance 1729 770 Weight 68.3 kg 68 kg Exam: GENERAL: well-nourished and in no acute distress. Alert and oriented x3 HEAD: Atraumatic, normocephalic. EYES: Pupils equal round and reactive to light, extraocular movements intact, sclera anicteric, conjunctiva are normal. ENT: TMs normal, nares patent, oropharynx clear without exudates. Moist mucous membranes. No oral ulcerations or bleeding gums noted NECK: supple without lymphadenopathy. Trachea is central. No cervical or axillary lymphadenopathy noted. Carotids are 2+, JVD WNL LUNGS: Respiration seems nonlabored, no significant accessory muscle action noted. Breath sounds clear to auscultation bilaterally and equal noted. No wheezes rales or rhonchi noted. No significant dullness noted on percussion. CHEST: Palpation of the chest wall shows no significant chest wall tenderness. No other significant abnormalities noted. HEART: [employer], No PSH, 1/6 DARIEL aortic area, 1/6 murillo systolic murmur mitral area, no rubs, no gallops. ABDOMEN: Soft, no significant tenderness appreciated, normoactive bowel sounds. No guarding, no rebound. No rigidity noted . No masses appreciated. EXTREMITIES: Pedal pulses are 1-2+, no calf tenderness noted. No clubbing or cyanosis.trace pedal edema noted NEUROLOGICAL: Focused neurological exam showed no significant neurologic deficit. Normal speech, no focal weakness appreciated. PSYCH: Normal mood, normal affect. Judgment and insight within normal limits. SKIN: No significant ecchymosis, skin is noted to be warm. MUSCULOSKELETAL EXAM: No significant acute joint swelling noted. Results Laboratory Results: 06/15/17 06:00 06/15/17 06:00 06/15/17 06/15/17 06:00 06:00 WBC 10.8 H RBC 4.08 L Hgb 12.1 L Hct 35.2 L MCV 86 MCH 29.6 MCHC 34.3 RDW 16.3 H Plt Count 183 Seg Neutrophils % Not Reportable Lymphocytes % Not Reportable Monocytes % Not Reportable Eosinophils % Not Reportable Basophils % Not Reportable Absolute Neutrophils Not Reportable Absolute Lymphocytes Not Reportable Absolute Monocytes Not Reportable Absolute Eosinophils Not Reportable Absolute Basophils Not Reportable Sodium 139.1 Potassium 3.3 L Chloride 99 Carbon Dioxide 33 H Anion Gap 7 BUN 23 H Creatinine 0.71 Est GFR ( Amer) > 60 Est GFR (Non-Af Amer) > 60 Glucose 150 H Calcium 8.4 06/12/17 06/12/17 06/12/17 15:15 19:00 20:45 Troponin I 0.102 0.144 0.119 06/13/17 14:58 Troponin I 0.052 Impressions: Head CT 06/12/17 00:00 IMPRESSION: MILD CHRONIC CHANGES OF ATROPHY AND MICROVASCULAR ISCHEMIA. NO ACUTE PROCESS. EVIDENCE OF ACUTE STROKE: NO. Chest X-Ray 06/12/17 11:08 IMPRESSION: Consolidative process in the right mid and lower lung field as noted above with associated pleural effusion. While this may all be related to a pneumonic infiltrate, the possibility of a recurrent mass cannot be excluded. Followup is recommended and if the these changes persist, a chest CT scan may be of value for further evaluation. Other findings as noted above Assessment & Plan - Diagnosis (1) Atrial fibrillation with rapid ventricular response Is this a current diagnosis for this admission?: Yes (2) Elevated troponin I level Is this a current diagnosis for this admission?: Yes (3) Coronary artery disease Qualifiers: Coronary Disease-Associated Artery/Lesion type: unspecified vessel or lesion type Associated angina: angina presence unspecified (4) Diabetes mellitus type II, controlled Qualifiers: Diabetes mellitus complication status: with circulatory complication Diabetes mellitus complication detail: with other circulatory complications Diabetes mellitus shelter insulin use: with shelter use Qualified Code(s) : E11.59 - Type 2 diabetes mellitus with other circulatory complications Is this a current diagnosis for this admission?: Yes (5) Hypertension Qualifiers: Hypertension type: essential hypertension Qualified Code(s): I10 - Essential (primary) hypertension Is this a current diagnosis for this admission?: Yes (6) Left bundle branch block (LBBB) Is this a current diagnosis for this admission?: Yes (7) Presence of combination internal cardiac defibrillator (ICD) and pacemaker Is this a current diagnosis for this admission?: Yes (8) Weakness Is this a current diagnosis for this admission?: Yes (9) Fall Qualifiers: Encounter type: subsequent encounter Qualified Code(s): W19.XXXD - Unspecified fall, subsequent encounter Is this a current diagnosis for this admission?: Yes - Notes Notes: Defibrillator interrogation yesterday showed no significant findings. Atrial fibrillation with rapid ventricular response: This was noted on initial EKG. Recommend rate control. Patient would be a suboptimal candidate for chronic anticoagulation, because of history of fall, metastatic cancer etc. Patient is at increased risk of stroke. If any anticoagulation is used would recommend that this be cleared with patient's oncologist. Patient started on Ranexa as there is some report that this might prevent recurrence of atrial fibrillation. Troponin I elevation: Most likely related to supply demand mismatch. Because of significant comorbid diagnosis, patient would not be a candidate for invasive evaluation in the absence of uncontrolled angina symptoms. Ranexa will help this condition. Coronary artery disease: Symptomatically stable. Tolerating Ranexa, as this might help maintain Patient sinus rhythm. May actually help improve coronary perfusion. Hypertension: Recommend liberal control in this patient due to history of fall, generalized weakness. History of fall: Patient will benefit from OT PT therapy and fall prevention teaching. Diabetes type 2: Recommend good control but tight control should be avoided. Presence of defibrillator: Will consider interrogating it but this is not an emergency and can be performed by his primary care director of entertainment on discharge. So far I have not seen any evidence of malfunction at this point. Left bundle branch block pattern: Probably related to underlying CAD and possible cardiomyopathy. Patient felt stable enough for discharge. 2D echo results were reviewed. - Time Time with patient: 15-25 minutes - CODE STATUS was discussed, patient remains full code. Surrogate decision-maker unchanged. Multiple medical problems were addressed. More than 50% of the time spent coordinating care, discussing management plans with involved caregivers. Management plans discussed with involved personnels. Medical decision making was of moderate to high complexity , patient's has multiple comorbidities. Medications reviewed and adjusted accordingly: Yes
== END 2017-06-15 14:00 | disposition home or self-care (01) | DRG 871 ==
LOC: ER 10:35 → EH 12:17 → 3S 16:24
PROVIDERS: ADMIT Student in an Organized Health Care Education/Training Program; ATTEND Student in an Organized Health Care Education/Training Program
DX: A41.9 Sepsis, unspecified organism (principal); J18.1 Lobar pneumonia, unspecified organism; J96.21 Acute and chronic respiratory failure with hypoxia; C34.90 Malignant neoplasm of unspecified part of unspecified bronchus or lung; C78.7 Secondary malignant neoplasm of liver and intrahepatic bile duct; J43.9 Emphysema, unspecified; I48.91 Unspecified atrial fibrillation; E78.5 Hyperlipidemia, unspecified; I10 Essential (primary) hypertension; E11.51 Type 2 diabetes mellitus with diabetic peripheral angiopathy without gangrene; R79.89 Other specified abnormal findings of blood chemistry; I44.7 Left bundle-branch block, unspecified; I25.2 Old myocardial infarction; Z87.891 Personal history of nicotine dependence; Z95.1 Presence of aortocoronary bypass graft; Z95.0 Presence of cardiac pacemaker; Z99.81 Dependence on supplemental oxygen; Z79.899 Other long term (current) drug therapy; Z79.2 Long term (current) use of antibiotics; Z79.82 Long term (current) use of aspirin; Z79.4 Long term (current) use of insulin; Z79.51 Long term (current) use of inhaled steroids
CPT/HCPCS: 36415; 70450; 71045; 80048; 80053; 81001; 82550; 82553; 82803; 82962; 83605; 84484; 85025; 87040; 87086; 93005; 93010; 93306; 94640; 96365; 99285; G8978-GP; G8979-GP; G8980-GP; G8987-GO; G8988-GO; G8989-GO; J0456; J0692; J0696; J1644; J1815; J1956; J2920; J3490; J7030; J7512; J7620